=== PATIENT | male | born 1945 | race Caucasian/White ===

== ENCOUNTER 2017-11-23 11:11 | Outpatient (CLI) | payer MEDICARE ==
[2017-11-23 13:45] LABS: Mean Corpuscular HGB CONC 33.7 g/dL (32.0-36.0); Mean Corpuscular Hemoglobin 30.1 pg (27.0-31.0); Mean Corpuscular Volume 89.5 fL (78.0-98.0); Mean Platelet Volume 9.6 fL (7.4-10.4); Platelet Count 133 thou/uL (130-400); Red Blood Cell (RBC) Count 3.99 mill/uL (4.70-6.10); White Blood Cell (WBC) Count 5.8 thou/uL (4.8-10.8)
[2017-11-23 13:47] LABS: INR-International Normal Ratio 1.4; PTT 31.5 SEC (22.9-36.1); Prothrombin Time 17.4 SEC (12.0-14.7)
[2017-11-23 13:55] LABS: Bilirubin Negative (Negative); Blood, Urine Negative (Negative); Clarity CLEAR (Clear); Glucose, Urine (Dipstick) Negative (Negative); Leukocyte Negative (Negative); Nitrite Negative (Negative); Protein, Urine (Dipstick) Negative (Neg-Trace); pH, Urine 6.5 (5.0-9.0)
[2017-11-23 13:56] LABS: Bacteria/HPF None Seen HPF (None Seen); Hyaline Casts/LPF 0-3 HYALINE CAST LPF (0-3 Hyaline); Pathc Cast-AUWi Flag 0.14 (0-2.49); RBC/HPF 0-3 HPF (0-3); Squamous Epithelial None Seen HPF (0-3); WBC/HPF 0-3 HPF (0-3)
[2017-11-23 13:59] LABS: Anion Gap 16 mmol/L (10-20); BUN (Urea Nitrogen) 61 mg/dL (8.4-25.7); Calc. Creatinine Clearance 0 mL/min (70-130); Calcium 9.1 mg/dL (7.8-10.44); Carbon Dioxide 23 mmol/L (23-31); Chloride 105 mmol/L (98-107); Estimated GFR-MDRD 28; Glucose 103 mg/dL (83-110); Potassium 3.6 mmol/L (3.5-5.1); Sodium 140 mmol/L (136-145)
== END 2017-11-23 11:12 | disposition home or self-care (01) ==
LOC: LABBT 11:11
PROVIDERS: ATTEND Urology
DX: Z01.818 Encounter for other preprocedural examination (principal); N40.1 Benign prostatic hyperplasia with lower urinary tract symptoms
CPT/HCPCS: 80048; 81001; 85027; 85610; 85730; 87086; 93005; 93010

== ENCOUNTER 2017-12-02 06:56 | Observation (INO) | payer MEDICARE ==
[2017-11-23 11:48] VITALS: BMI 32.1
[2017-12-02] MEDS ORDERED: Levofloxacin 500 mg/D5W 100 ml Premix Bag ONE (08:07)
[2017-12-02 09:02] LABS: INR-International Normal Ratio 1.1; PTT 29.3 SEC (22.9-36.1); Prothrombin Time 14.2 SEC (12.0-14.7)
[2017-12-02] MEDS ORDERED: Midazolam HCl 2 mg/2 ml Vial ONE (09:30)
[2017-12-02] MEDS ORDERED: Fentanyl 100 MCG/2 ML VIAL ONE (09:30)
[2017-12-02] MEDS ORDERED: Bupivacaine 0.75% W/DEXTROSE 8.25% 2 ML AMP ONE (09:30)
[2017-12-02] MEDS ORDERED: B & O ONE (09:40)
[2017-12-02] MEDS ORDERED: Oxybutynin 5 MG TAB PO PRN (11:42)
[2017-12-02] MEDS ORDERED: Hyoscyamine Sulfate SL 0.125 mg Tablet SL PRN (11:42)
[2017-12-02] MEDS ORDERED: Ondansetron HCl/PF 4 MG/2 ML Vial IVP PRN ×2 (11:42→11:54)
[2017-12-02] MEDS ORDERED: Acetaminophen 500 MG TAB PO PRN (11:42)
[2017-12-02] MEDS ORDERED: Bisacodyl 10 MG SUPP PR PRN (11:42)
[2017-12-02] MEDS ORDERED: hydrALAZINE 20 MG/ML VIAL SLOW IVP PRN (11:42)
[2017-12-02] MEDS ORDERED: Mag-Al 1200 mg/1200 mg/30 ML UDCUP PO PRN (11:42)
[2017-12-02] MEDS ORDERED: Morphine 4 MG/ML VIAL SLOW IVP PRN (11:42)
[2017-12-02] MEDS ORDERED: diphenhydrAMINE 25 MG CAP PO PRN (11:42)
[2017-12-02] MEDS ORDERED: traMADol HCl 50 MG TAB PO PRN (11:46)
[2017-12-02] MEDS ORDERED: HumaLOG 300 UNITS/3 ML VIAL SC PRN (11:47)
[2017-12-02] MEDS ORDERED: Dextrose 5% in Water 1,000 ML IV PRN (11:47)
[2017-12-02] MEDS ORDERED: Dextrose 50% Abboject 50 ML SYRINGE SLOW IVP PRN (11:47)
[2017-12-02] MEDS ORDERED: Promethazine HCl 25 MG/ML VIAL IM PRN (11:54)
[2017-12-02] MEDS ORDERED: Promethazine HCl 25 MG/ML VIAL SLOW IVP PRN (11:54)
[2017-12-02 13:33] LABS: Anion Gap 15 mmol/L (10-20); BUN (Urea Nitrogen) 50 mg/dL (8.4-25.7); Calc. Creatinine Clearance 46 mL/min (70-130); Calcium 9.4 mg/dL (7.8-10.44); Carbon Dioxide 27 mmol/L (23-31); Chloride 105 mmol/L (98-107); Estimated GFR-MDRD 31; Glucose 95 mg/dL (83-110); Potassium 3.5 mmol/L (3.5-5.1); Sodium 143 mmol/L (136-145)
--- NOTE | 2017-12-02 13:54 | OP ---
DATE OF PROCEDURE: 12/02/2017 SERVICE: Urology SURGEON: Rosendo Howe M.D. PREOPERATIVE DIAGNOSES: Benign prostatic hypertrophy with retention. POSTOPERATIVE DIAGNOSES: Benign prostatic hypertrophy with retention. PROCEDURE PERFORMED: Transurethral vaporization of the prostate. INDICATIONS FOR PROCEDURE: Mr. Galdamez is a 72-year-old white male with multiple comorbidities who p resented with benign prostatic hypertrophy and urinary retention. He has actually improved with his comorbidities and is more stable now and has received both cardiac and pulmonary clearance for his pereyra rgery. After discussion of risks and benefits, he has agreed to proceed forward with transurethral v aporization of the prostate. DESCRIPTION OF PROCEDURE: After identification of his armband and verification of consent, the patie nt was brought back to the operating room. He underwent a spinal anesthesia with some sedative. He was placed in dorsal lithotomy position and prepped and draped in sterile fashion. After appropriate timeout, a lubricated 24 Macanese resectoscope sheath with visual obturator was passed through the nilson tus. The meatus did have to be dilated up to 24 Macanese in order to allow the passage of the scope. Once the scope was in, it passed easily all the way to the prostate which was hypertrophic as it had previously been on cystoscopy. The bladder was unremarkable and both ureters were identified close t o the bladder neck, but far enough away to perform the surgery. The visual obturator was then switch ed out for the bipolar button and vaporization was performed from the bladder neck to the verumontanu m circumferentially with most of the prostate tissue being on the lateral lobes. There was a small m edian bar which was relaxed using 5 and 7 incisions, taking care not to injure the ureteral orifices. The intervening tissue between the relaxing 2 SHAISTA incision was vaporized with the button. Meticulo us hemostasis was then performed. After completion, the prostate was wide open. There was no specim en to be collected. There was no bleeding and any small bleeders were further cauterized until nothi ng to be identified even with the bladder emptied. The ureters were identified in orthotopic locatio n unharmed. Satisfied, the bladder was filled and then the resectoscope removed. A 22-Macanese three- way Mackey catheter was then placed into the bladder and the bladder irrigated clear. 30 mL of steril e water was placed into the balloon. The patient had a CBI initiated and his catheter attached to a StatLock. A B&O suppository was placed in his rectum. He was then awakened and taken to PACU for re covery in stable condition. COMPLICATIONS: None. ESTIMATED BLOOD LOSS: Minimal. RETAINED TUBES AND DRAINS: A 22-Macanese 3-way Mackey catheter. SPECIMENS: None. DISPOSITION: The patient will be kept in the hospital overnight on CBI and then he will be discharge d in the morning with or without a catheter assuming he passes a voiding trial.
[2017-12-02] MEDS ORDERED: ePHEDrine/0.9% NaCl/PF SYRINGE 50 mg/10 ml ONE (14:02)
[2017-12-02] MEDS: Mometasone/Formoterol 120 PUFF INHALER INH SCH (19:21)
[2017-12-02] MEDS ORDERED: Loratadine 10 MG TAB PO SCH (21:00)
[2017-12-02] MEDS: Docusate 100 MG CAP PO SCH (21:32)
[2017-12-02] MEDS: Bumetanide 1 MG TAB PO SCH (21:33)
[2017-12-03] MEDS ORDERED: Levothyroxine Sodium 125 MCG TAB PO SCH (06:00)
[2017-12-03 06:16] LABS: Anion Gap 12 mmol/L (10-20); BUN (Urea Nitrogen) 49 mg/dL (8.4-25.7); Calc. Creatinine Clearance 50 mL/min (70-130); Carbon Dioxide 28 mmol/L (23-31); Chloride 104 mmol/L (98-107); Estimated GFR-MDRD 34; Glucose 140 mg/dL (83-110); Potassium 3.3 mmol/L (3.5-5.1); Sodium 141 mmol/L (136-145)
[2017-12-03] MEDS: Mometasone/Formoterol 120 PUFF INHALER INH SCH (06:48)
[2017-12-03 07:20] LABS: Band 20 % (5-11); Eosinophils 2 % (0-10); Hemoglobin 11.4 g/dL (14.0-18.0); Lymphocytes 12 % (21-51); MDiff Complete? YES; Mean Corpuscular HGB CONC 32.8 g/dL (32.0-36.0); Mean Corpuscular Hemoglobin 29.7 pg (27.0-31.0); Mean Corpuscular Volume 90.5 fL (78.0-98.0); Mean Platelet Volume 9.4 fL (7.4-10.4); Monocytes 15 % (0-10); Neutrophil 50 % (42-75); PLT Morphology Comment Appears Decreased; Platelet Count 120 thou/uL (130-400); RBC Distribution Width 14.8 % (11.5-14.5); RBC Morphology Normal; Red Blood Cell (RBC) Count 3.83 mill/uL (4.70-6.10); White Blood Cell (WBC) Count 6.6 thou/uL (4.8-10.8)
[2017-12-03 07:47] VITALS: BP 119/66; TEMP 98
[2017-12-03] MEDS ORDERED: Potassium Chloride 20 MEQ TAB PO SCH (08:00)
[2017-12-03] MEDS: Docusate 100 MG CAP PO SCH (08:09)
[2017-12-03] MEDS ORDERED: Insulin Glargine 20 UNITS in Pre-Filled Syringe 1 EACH SC SCH (09:00)
[2017-12-03] MEDS ORDERED: Amlodipine 5 MG TAB PO SCH (09:00)
[2017-12-03] MEDS ORDERED: Polyethylene Glycol 3350 17 GM Packet PO SCH (09:00)
[2017-12-03] MEDS ORDERED: AcetaZOLAMIDE 250 MG TAB PO SCH (09:00)
[2017-12-03] MEDS ORDERED: Colchicine 0.6 MG TAB PO SCH (09:00)
[2017-12-03] MEDS ORDERED: Non-Formulary Item 1 EACH (Insulin Glargine,Hum.Rec.Anlog [Lantus Solostar] 20 UNIT) SQ SCH (09:00)
[2017-12-03] MEDS ORDERED: Ubidecarenone 50 MG CAP PO SCH ×2 (09:00)
--- NOTE | 2017-12-03 09:01 | DIS ---
Coverage fo DR Howe DATE OF ADMITTIN12/02/2017 DATE OF DISCHARGE: 12/03/2017 PROCEDURE: Cystoscopy, transurethral vaporization of the prostate. CONDITION: Stable. DISPOSITION: To home with assist at home. DISCHARGE MEDICATIONS: Colace, oxybutynin, tramadol provided by Dr. Howe. DISPOSITION: To home to self-care. The patient to be discharged with indwelling Mackey catheter to leg bag, CBI port will be plugged. followup appointment as previously scheduled by Dr. Howe. BRIEF HISTORY: Mr. Galdamez is a 72-year-old male followed by Dr. Howe, he has a history of urinary retention on CICs. He underwent transurethral vaporization of prostate, which was uneventful. The patient was signed out to me by Dr. Howe as he is out of the office today. His CBI was held this morning with amado clear urine. Overnight, there was a tiny small clot that was evacuated manually with no subsequent clots. I did irrigate and flush his catheter with no subsequent clots. His urine is clear enough to be discharged. followup appointment as scheduled. CONDITION: Stable. MTDD
[2017-12-03] MEDS: Bumetanide 1 MG TAB PO SCH (10:50)
== END 2017-12-03 11:37 | disposition home or self-care (01) ==
LOC: SDC 06:56 → SURG A 13:59
PROVIDERS: ADMIT Urology; ATTEND Urology
PROC: 0V507ZZ Destruction of Prostate, Via Natural or Artificial Opening (ICD-10-PCS; principal; 2017-12-02)
DX: N40.1 Benign prostatic hyperplasia with lower urinary tract symptoms (principal); R33.8 Other retention of urine; E03.9 Hypothyroidism, unspecified; D64.9 Anemia, unspecified; I11.0 Hypertensive heart disease with heart failure; I50.9 Heart failure, unspecified; E78.5 Hyperlipidemia, unspecified; J44.9 Chronic obstructive pulmonary disease, unspecified; K21.9 Gastro-esophageal reflux disease without esophagitis; I48.91 Unspecified atrial fibrillation; D69.6 Thrombocytopenia, unspecified; Z79.01 Long term (current) use of anticoagulants; Z79.899 Other long term (current) drug therapy
CPT/HCPCS: 52648; 80048 ×2; 82962 ×2; 85025; 85610; 85730; 94640 ×2; 96365; G0378; 36415; 36416; J1956; J2250; J3010; J3490

== ENCOUNTER 2018-01-17 11:02 | Outpatient (CLI) | payer MEDICARE | END 2018-01-17 11:03 | disposition home or self-care (01) | LOC: BICULT 11:02 | PROVIDERS: ATTEND Urology | DX: N18.3 Chronic kidney disease, stage 3 (moderate) (principal) | CPT/HCPCS: 76770 ==

== ENCOUNTER 2018-08-20 13:18 | Inpatient (IN) | payer MEDICARE ==
--- NOTE | 2018-08-20 13:45 | RAD ---
EXAM: Portable chest PROVIDED CLINICAL HISTORY: Cough COMPARISON: 06/21/2016 FINDINGS: Cardiac silhouette remains enlarged. Right subclavian cardiac pacing device redemonstrated. No focal consolidation, pleural fluid or pneumothorax evident. IMPRESSION: No evidence for an acute cardiopulmonary process.
[2018-08-20 13:59] LABS: Mean Corpuscular HGB CONC 30.1 g/dL (32.0-36.0); Mean Corpuscular Hemoglobin 26.8 pg (27.0-31.0); Mean Corpuscular Volume 89.2 fL (78.0-98.0); Mean Platelet Volume 10.6 fL (7.4-10.4); Platelet Count 124 thou/uL (130-400); RBC Distribution Width 17.4 % (11.5-14.5); Red Blood Cell (RBC) Count 3.74 mill/uL (4.70-6.10); White Blood Cell (WBC) Count 7.3 thou/uL (4.8-10.8)
[2018-08-20] MEDS ORDERED: methylPREDNISolone Sod Succ/PF 125 MG/2 ML VIAL ONE (14:12)
[2018-08-20 14:15] LABS: ALT (SGPT) 17 U/L (8-55); AST (SGOT) 20 U/L (5-34); Albumin 4.3 g/dL (3.4-4.8); Alkaline Phosphatase 129 U/L (40-150); Anion Gap 16 mmol/L (10-20); BUN (Urea Nitrogen) 53 mg/dL (8.4-25.7); Bilirubin, Total 1.3 mg/dL (0.2-1.2); Calc. Creatinine Clearance 0 mL/min (70-130); Calcium 8.8 mg/dL (7.8-10.44); Carbon Dioxide 26 mmol/L (23-31); Chloride 103 mmol/L (98-107); Estimated GFR-MDRD 27; Globulin 2.5 g/dL (2.4-3.5); Glucose 105 mg/dL (83-110); Potassium 3.7 mmol/L (3.5-5.1); Protein, Total 6.8 g/dL (5.8-8.1); Sodium 141 mmol/L (136-145)
[2018-08-20 14:21] LABS: Anisocytosis SLIGHT = 6-15 cells (100X) (0-5/hpf); Band 3 % (5-11); Hypochromia SLIGHT = 6-15 cells (100X) (0-5/hpf); Lymphocytes 6 % (21-51); MDiff Complete? YES; Monocytes 8 % (0-10); Neutrophil 82 % (42-75); Platelet Morphology Comment Appears Decreased
[2018-08-20 14:22] LABS: INR-International Normal Ratio 2.4; PTT 38.4 SEC (22.9-36.1); Prothrombin Time 26.3 SEC (12.0-14.7)
[2018-08-20] MEDS ORDERED: Azithromycin 500 MG VIAL ONE (14:25)
[2018-08-20 14:33] LABS: Troponin I 0.049 ng/mL (< 0.028)
[2018-08-20] MEDS ORDERED: Aspirin Chewable 81 MG TAB ONE (15:15)
[2018-08-20] MEDS ORDERED: Ondansetron PF 4 MG/2 ML Vial IVP PRN (15:20)
[2018-08-20] MEDS ORDERED: Zolpidem Tartrate 5 MG TAB PO PRN (15:20)
[2018-08-20] MEDS ORDERED: Aspirin 325 MG TAB ONE (15:20)
[2018-08-20] MEDS ORDERED: guaiFENesin/DM ER PO PRN (15:20)
[2018-08-20] MEDS ORDERED: HYDROcodone/Acetaminophen 5/325 mg Tablet PO PRN (15:20)
[2018-08-20] MEDS ORDERED: Oxybutynin 5 MG TAB PO PRN (15:28)
[2018-08-20] MEDS ORDERED: Dextrose 5% in Water 1,000 ML IV PRN (15:29)
[2018-08-20] MEDS ORDERED: HumaLOG 300 UNITS/3 ML VIAL SC PRN (15:29)
[2018-08-20] MEDS ORDERED: Dextrose 50% Abboject 50 ML SYRINGE SLOW IVP PRN (15:29)
--- NOTE | 2018-08-20 15:34 | PDOC.EVN ---
Event Note - Event Note Event Note: H&P #[id number]
[2018-08-20 17:37] VITALS: BMI 32.9
[2018-08-20] MEDS: cefTRIAXone\\ROCEPHIN 1 GM in Sodium Chloride 0.9% 100 ML IVPB SCH (18:41)
[2018-08-20] MEDS: methylPREDNISolone Sod Succ 40 MG VIAL IVP SCH ×2 (18:42→23:57)
[2018-08-20 19:29] LABS: Troponin I 0.067 ng/mL (< 0.028)
[2018-08-20] MEDS: Heparin 5,000 UNITS/ML VIAL SC SCH (20:31)
[2018-08-20] MEDS: Bumetanide 1 MG TAB PO SCH (20:31)
--- NOTE | 2018-08-20 22:15 | HP ---
CHIEF COMPLAINT: Shortness of breath. HISTORY OF PRESENT ILLNESS: This is a 73-year-old male with significant history of obesity, apparently smoked a pack a day since the age of 15 until about the age of 69 two packs a day, has a history of significant coronary artery disease, COPD, peripheral vascular disease with 2 stents in the coronaries, 2 stents in the iliacs. The patient presents today with shortness of breath, sees Dr. Anguiano and Dr. Camara for his cardiology and renal issues. The patient presents with shortness of breath and cough, symptoms worsening over the last 3 days, dyspnea on exertion, as well as some mild chest discomfort. The patient states that this sensation of shortness of breath is different than the one that he has had prior, it is not quite like a COPD exacerbation nor is it similar to the type that he had in the past when he had stents done. The patient states that he otherwise denies any other associated symptoms. No alleviating or aggravating factors other than the ones mentioned. The patient is seen and examined in the ER. is at bedside. All questions are answered. ALLERGIES: NO KNOWN DRUG ALLERGIES. PAST MEDICAL HISTORY: 1. Obesity. 2. Hypertension. 3. Coronary artery disease. 4. Diabetes mellitus type 2. 5. Hyperlipidemia. 6. Tachycardia with a pacemaker placement. 7. Edema in lower extremities. 8. Peripheral vascular disease with stents. 9. Coronary artery disease with stents. SOCIAL HISTORY: Social drinker. Currently, nonsmoker. FAMILY HISTORY: Positive for hypertension, diabetes. PHYSICAL EXAMINATION: VITAL SIGNS: Blood pressure was 106/88, respiratory rate of 25, temperature 98, O2 saturation 100% on 4 L nasal cannula, heart rate of 80. GENERAL: The patient is lying in bed, in no acute discomfort. HEENT: Pupils are equal, round, and reactive to light and accommodation. Extraocular muscles intact. Oral cavity, moist and pink. NECK: Supple, mobile, and nontender. Thyroid appreciated. CARDIOVASCULAR: Heart rate, sinus paced rhythm. S1 and S2. No murmurs, rubs, or gallops appreciated. PULMONARY: Coarse breath sounds. Mild expiratory wheezing also noted. Productive cough during examination. ABDOMEN: Just rotund. Positive bowel sounds. Soft, nontender, nondistended. EXTREMITIES: 2+ pitting edema in bilateral lower extremities. Posterior tibialis pulses appreciated, 2+ in upper extremity; 2+ peripheral radial pulses noted. NEUROLOGICAL: Cranial nerves 2 through 12 intact. No loss of motor or sensory function. LABORATORY DATA: Labs reviewed; CBC, BMP, as well as chest x-ray. ASSESSMENT: 1. Shortness of breath. 2. Chronic obstructive pulmonary disease exacerbation. 3. Hyperlipidemia. 4. Hypertension. 5. Coronary artery disease. 6. Peripheral vascular disease. 7. Cardiomyopathy. 8. Diabetes mellitus type 2. 9. Obesity hypoventilation syndrome. PLAN: 1. At this point in time, we will admit the patient to Internal Medicine observation service. Continue home O2 per home O2 protocol. The patient is on continuous home O2. 2. We will give the patient steroids as well as Rocephin and azithromycin. 3. We will obtain iron levels to check for iron-deficiency anemia. 4. Obtain an echocardiogram. 5. I will also consult his exterminator helper and spray cementer per the patient and family request, consult with Dr. Anguiano and Dr. Camara. 6. Continue home Bumex and diuresis according to home regimen for now. 7. We will probably adjust once echo results are available. 8. Repeat lab work in the morning. 9. Blood cultures have been ordered and pending. 10. The patient wishes to remain a full code. 11. Case and plan discussed with the patient and his at length. They understand and agree with this plan. Job ID: [id number]
--- NOTE | 2018-08-21 01:42 | CON ---
DATE OF CONSULTATION: 08/20/2018 INDICATION FOR CONSULTATION: A 73-year-old patient with a history of coronary artery disease, who presented with productive cough and also complained of shoulder and bilateral arm pain. Cardiac enzymes were obtained in the emergency room. Troponin I was found to be indeterminate at 0.049 and he was admitted and we were asked to consult him for possible progression of coronary artery disease. He does have a history of coronary disease, has undergone angioplasty and stent placement in the past, and he also has a pace maker with 100% pacing in the ventricle making it somewhat difficult to determine whether or not the patient has any underlying ischemia on the EKG. At this time, he is comfortable. He says his shoulder and arm pain is actually just a discomfort, is not very bad pain and this has not progressed in nature over the last several days. HISTORY OF PRESENT ILLNESS: This is a very unfortunate 73-year-old gentleman who has been seen by Dr. Anguiano in the past. He originally saw him back in 2016. He underwent cardiac catheterization in 2017. Again, he had actually undergone stent placement in [place] previously to the right coronary artery. He had a catheterization in 2017 after he had complained of some discomfort. He was found to have calcifications in the left main, proximal left anterior descending artery as well as the proximal circumflex. The left main had 20% stenosis. Left anterior descending artery had 20% stenosis, left circumflex had a 50% stenosis. However, the FFR in the left circumflex was 0.9, not indicative to need any type of intervention. His stent in the right coronary artery was a 3.5 x 18 mm stent, which remained patent without evidence of in-stent restenosis. Since that time, he did relatively well. He currently follows up in the office, not routinely, but has been seen in the office on occasion. He underwent cardiac last catheterization that I can see was in 2017. At this time, recently he states he has been complaining of having a cough which became productive. He then presented to the emergency room and had been complaining of discomfort and that is when the enzymes were obtained. PAST MEDICAL HISTORY: Significant for the above noted coronary artery disease, history of pacemaker placement, AV fani ablation, chronic atrial fibrillation. He has had peripheral stent placement in the lower extremity, perhaps even bilateral iliacs, and uncertain exactly what was performed. He has had a tonsillectomy, cataract surgery. He has had total knee replacement on the right. He has had a hemorrhoidectomy. He has had a thyroidectomy. MEDICATIONS: Include; 1. Amlodipine 5 mg a day. 2. Lantus insulin 100 units/mL. He takes it per directions. 3. Acetazolamide 250 mg one tablet q.a.m. 4. Bumetanide 2 mg, he takes 1/2 tablets twice a day. 5. Symbicort aerosol inhaler. 6. Potassium extended release tablets 10 mEq. He takes 20 mEq once a day. 7. Coumadin as directed given INR between 2 and 3. 8. Synthroid 150 mcg daily. 9. He takes Claritin as needed. 10. He takes MiraLAX p.r.n. ALLERGIES: NONE. SOCIAL HISTORY: He smoked in the past, but has stopped sometime back over a couple of years ago. He denies any alcohol use. He lives with his in [place]. FAMILY HISTORY: Positive for coronary artery disease. REVIEW OF SYSTEMS: He mainly complains of cough and a productive sputum and has recently had a tooth abscess for which he has been following up with the dentist and he complained of the shoulder discomfort. He denies any new GI complaints, complaints, or musculoskeletal complaints. Previously he had lower extremity edema, but he has been wearing support stockings or a BRITTNEY hose and these have resolved the problem. There is no significant edema noted today. PHYSICAL EXAMINATION: GENERAL: Reveals a well-developed, well-nourished gentleman, who is in no acute distress. VITAL SIGNS: Blood pressure is 129/61, heart rate is 71 and 100% pacing. He is afebrile. Respiratory rate is 24. HEENT: Shows the head to be normocephalic and atraumatic. Carotid pulses are present. I do not hear any bruits. CHEST: Has late inspiratory and expiratory wheezing throughout. CARDIOVASCULAR: Heart sounds are somewhat distant. I cannot elicit an S1 or S2, but he does have a regular rhythm. He has a very soft systolic murmur at the lower sternal border. ABDOMEN: Shows morbid obesity with positive bowel sounds. No organomegaly or masses noted. No tenderness noted. EXTREMITIES: Show no clubbing, cyanosis, or edema at this time. Pedal pulses are difficult to palpate. NEUROLOGIC: The patient appears to be grossly intact. SKIN: Warm and dry. LABORATORY DATA: Show a troponin I of 0.049. This will be repeated. INR is 2.4. BNP was 345. Hemoglobin is 10 with a WBC of 7.3, BUN was 63 with a creatinine of 2.35, blood sugar was 105, potassium is 3.7, sodium is 141. IMPRESSION: 1. Chronic obstructive pulmonary disease exacerbation with upper respiratory tract infection for which he will continue on his antibiotics. 2. History of coronary artery disease, status post angioplasty, stent placement, the last cardiac catheterization is outlined as above. His pain in his shoulders and arms may be ischemic, but may be noncardiac in nature. He did present with pain previously before he underwent cardiac catheterization in 2017. 3. Chronic obstructive pulmonary disease. This will be dealt with by the primary care service. This appears to be a chronic obstructive pulmonary disease exacerbation at this time. 4. Anemia. This may be anemia of chronic disease. 5. Peripheral vascular disease. He denies any claudication symptoms at this time and seems to be doing quite well. 6. History of chronic kidney disease. His creatinine is 2.35. Should he need to undergo cardiac catheterization, we will need to proceed with hydration prior to that. 7. History of chronic atrial fibrillation. He has undergone AV fani ablation in the past. His rate is under good control and he is 100% pacing. 8. History of pacemaker insertion, uncertain what kind he has, but if he has not had it recently interrogated, we will try to get this on this admission. 9. History of dyslipidemia. I do not see that he is taking any statin medications. We will need to discern why he is not taking these medications and perhaps can resume his statin medications since he does have significant coronary artery disease as well as peripheral vascular disease. He may be a candidate for injectable medications such as PSK9 medications to significantly lower the cholesterol level if he is able to afford these medications. He is on Medicare and [employer], so he may be a reasonable candidate to proceed with this method if he is not able to take the statins and the cholesterol level is still elevated. I do not see a recent cholesterol level. We will try to obtain this prior to the patient being discharged. Perhaps tomorrow morning, we can obtain a cholesterol level. His last LDL level in September 2017 was 210. At this time, we will continue to trend the cardiac enzymes. He will continue on the antibiotics. We will continue to monitor the patient very carefully to see whether or not he meets criteria for undergoing cardiac catheterization and echocardiogram will be obtained to determine if his ejection fraction remains stable. Job ID: [id number]
[2018-08-21 04:57] LABS: Anion Gap 17 mmol/L (10-20); BUN (Urea Nitrogen) 59 mg/dL (8.4-25.7); Calc. Creatinine Clearance 41 mL/min (70-130); Calcium 8.8 mg/dL (7.8-10.44); Carbon Dioxide 24 mmol/L (23-31); Chloride 103 mmol/L (98-107); Estimated GFR-MDRD 27; Glucose 184 mg/dL (83-110); Potassium 3.8 mmol/L (3.5-5.1); Sodium 140 mmol/L (136-145)
[2018-08-21 05:08] LABS: Iron 20 ug/dL (65-175); Iron Binding Capacity, Total 354 mcg/dL (261-462)
[2018-08-21 05:19] LABS: #Basophils 0.1 thou/uL (0.0-0.2); #Lymphocytes 0.3 thou/uL (1.20-3.40); #Monocytes 0.1 thou/uL (0.11-0.59); #Neutrophils 4.3 thou/uL (1.40-6.50); %Basophils 1.5 % (0.0-1.0); %Eosinophils 0.2 % (0.0-10.0); %Lymphocytes 6.8 % (21.0-51.0); %Monocytes 1.1 % (0.0-10.0); %Neutrophils 90.5 % (42.0-75.0); Mean Corpuscular HGB CONC 31.2 g/dL (32.0-36.0); Mean Corpuscular Hemoglobin 27.4 pg (27.0-31.0); Mean Platelet Volume 11.4 fL (7.4-10.4); Platelet Count 109 thou/uL (130-400); RBC Distribution Width 17.2 % (11.5-14.5); Red Blood Cell (RBC) Count 3.62 mill/uL (4.70-6.10); White Blood Cell (WBC) Count 4.7 thou/uL (4.8-10.8)
[2018-08-21] MEDS: Levothyroxine Sodium 125 MCG TAB PO SCH (05:52)
[2018-08-21] MEDS: methylPREDNISolone Sod Succ 40 MG VIAL IVP SCH ×3 (05:52→19:07)
[2018-08-21] MEDS: HumaLOG 300 UNITS/3 ML VIAL SC PRN ×3 (05:59→17:36)
[2018-08-21] MEDS ORDERED: Non-Formulary Item 1 EACH (Insulin Glargine,Hum.Rec.Anlog [Lantus Solostar] 20 UNIT) SQ SCH (09:00)
[2018-08-21] MEDS: Bumetanide 1 MG TAB PO SCH ×2 (09:56→21:26)
[2018-08-21] MEDS: AcetaZOLAMIDE 250 MG TAB PO SCH (09:57)
[2018-08-21] MEDS: Potassium Chloride 20 MEQ TAB PO SCH (09:57)
[2018-08-21] MEDS: Colchicine 0.6 MG TAB PO SCH (09:57)
[2018-08-21] MEDS: Insulin Glargine 20 UNITS in Pre-Filled Syringe SC SCH (09:57)
[2018-08-21] MEDS: Heparin 5,000 UNITS/ML VIAL SC SCH ×2 (09:58→21:26)
--- NOTE | 2018-08-21 10:31 | RAD ---
CHEST 1 VIEW: Date: 08/21/18 INDICATION: Shortness of breath. COMPARISON: Prior exam dated 08/20/18. FINDINGS: There is stable cardiomegaly. Dual lead pacemaker is unchanged. There is mild pulmonary vascular elizabeth estion. No zack pleural effusion or pneumothorax evident. No acute osseous abnormality evident. IMPRESSION: Moderate cardiomegaly with mild pulmonary vascular congestion. POS: BH
--- NOTE | 2018-08-21 11:59 | PDOC.PN ---
- Subjective Encounter Start Date: 08/21/18 Encounter Start Time: 11:56 Patient seen and examined, continues to wheeze, however says he's better than yesterday, all questions answered, no family at bedside. - Objective Vital Signs & Weight: Vital Signs (12 hours) Temp Pulse Resp BP Pulse Ox 08/21/18 07:45 97.8 F 69 16 109/55 L 97 08/21/18 04:17 97.6 F 80 20 97/54 L 92 L Weight Weight 236 lb 3.2 oz I&O: 08/20/18 08/21/18 08/22/18 06:59 06:59 06:59 Intake Total 550 Output Total 275 Balance 275 Result Diagrams: 08/21/18 04:24 08/21/18 04:24 Additional Labs: Accuchecks 08/21/18 08/21/18 08/20/18 11:25 05:52 17:50 POC Glucose 236 H 172 H 141 H Phys Exam - Physical Examination Constitutional: NAD HEENT: PERRLA, moist MMs, sclera anicteric Neck: no nodes, no JVD, supple Respiratory: no rales, wheezing present Cardiovascular: RRR, no significant murmur, no rub Gastrointestinal: soft, non-tender, no distention, positive bowel sounds Musculoskeletal: pulses present, edema present Dx/Plan (1) CAD (coronary artery disease) Code(s): I25.10 - ATHSCL HEART DISEASE OF [place] CORONARY ARTERY W/O ANG PCTRS Status: Chronic Comment: Cath 06/26- 2 V disease.Stenting X4 in the past (2) COPD (chronic obstructive pulmonary disease) Status: Chronic (3) Diabetes type 2, controlled Code(s): E11.9 - TYPE 2 DIABETES MELLITUS WITHOUT COMPLICATIONS Status: Chronic (4) Hypertension Code(s): I10 - ESSENTIAL (PRIMARY) HYPERTENSION Status: Chronic (5) Hypothyroidism Code(s): E03.9 - HYPOTHYROIDISM, UNSPECIFIED Status: Chronic (6) Obesity (BMI 30.0-34.9) Code(s): E66.9 - OBESITY, UNSPECIFIED Status: Chronic - Plan * Change to inpatient for now, continues to have wheezing which is improving, cont steroids * SOB improving * trops trending down, CP resolved, cardio following * renal evaluation pending * labs in AM * case and plan d/w patient at length, he understood and agreed with this plan.
[2018-08-21] MEDS: Azithromycin 500 MG in Sodium Chloride 0.9% 250 ML 250 ML IVPB SCH (15:25)
[2018-08-21] MEDS: cefTRIAXone\\ROCEPHIN 1 GM in Sodium Chloride 0.9% 100 ML IVPB SCH (16:40)
--- NOTE | 2018-08-21 17:47 | PDOC.CTH ---
Cardiology Progress Note - Subjective The pt seen and examined. No overnight events. No cardiac complaints. He cont having COTE with mild movement/talking - Objective Vital Signs Temp Pulse Resp BP Pulse Ox 08/21/18 15:18 97.5 F L 76 20 114/64 93 L 08/21/18 11:21 97.6 F 80 20 124/62 95 08/21/18 07:45 97.8 F 69 16 109/55 L 97 Weight 236 lb 3.2 oz 08/20/18 08/21/18 08/22/18 06:59 06:59 06:59 Intake Total 550 Output Total 275 Balance 275 - Physical Examination General/Neuro: alert & oriented x3 Neck: no JVD present Lungs: other: (wheezing and coarses) Heart: RRR Abdomen: soft Extremities: other: (distended edema;) - Telemetry Telemetry Rhythm: V paced - Labs Result Diagrams: 08/21/18 04:24 08/21/18 04:24 Troponin/CKMB Troponin I 0.030 ng/mL (< 0.028) H 08/21/18 04:24 - Assessment/Plan 1. CAD with hx of stent and normal cath in 2017 - Not on BBlocker due to hx of COPD; not on LYLA/ARB due to hx of CKD; Not on ASA due to Anemia? 2. Chronic Afib with hx of AF fani RFA - On Heparin 5000 units BID; 3. COPD - unchanged 4. LENY on CKD - unchanged 5. DM type 2 - managed by PCP 6. hx of PM placement - 7. Hyperlipidemia - may start PCSK 9 inhibitor? 8. PVD with hx of stent to BLE - 9. Anemia - unchanged 10. Hypothyroidism - MAR reviewed * Dr Anguiano's pt Review of Systems - Review of Systems Constitutional: reports: no symptoms reported EENTM: reports: no symptoms reported Respiratory: reports: shortness of breath, SOB with excertion, SOB at rest Cardiac (ROS): reports: no symptoms reported ABD/GI: reports: no symptoms reported : reports: no symptoms reported Musculoskeletal: reports: no symptoms reported
--- NOTE | 2018-08-21 20:28 | CON ---
DATE OF CONSULTATION: 08/21/2018 CONSULTING PHYSICIAN: Dr. Harden. REASON FOR CONSULTATION: Chronic kidney disease. REASON FOR ADMISSION: Shortness of breath. HISTORY OF PRESENT ILLNESS: This is a 73-year-old male with history of obesity, hypertension, coronary artery disease, type 2 diabetes, hyperlipidemia, came to the hospital with shortness of breath. Nephrology consult for chronic kidney disease. He does follow with Dr. Camara. He is feeling slightly better. No chest pain or palpitation reported to me. No fevers or chills. PAST MEDICAL HISTORY: Positive for hypertension, coronary artery disease, type 2 diabetes, hyperlipidemia, and peripheral vascular disease. HOME MEDICATIONS: 1. Lantus. 2. Diamox. 3. Bumex. 4. Symbicort. 5. Norvasc. 6. Claritin. 7. Colchicine. 8. . 9. MiraLAX. 10. Pantoprazole. 11. Synthroid. ALLERGIES: TO ALLOPURINOL. SOCIAL HISTORY: No smoking, alcohol, or drugs. FAMILY HISTORY: No history of any kidney disease. REVIEW OF SYSTEMS: CONSTITUTIONAL: Negative for weight loss or gain, ability to conduct usual activities. SKIN: Negative for rash, itching. EYES: Negative for double vision, pain. ENT/MOUTH: Negative for nose bleeding, neck stiffness, pain, tenderness. CARDIOVASCULAR: Negative for palpitations, dyspnea on exertion, orthopnea. RESPIRATORY: Negative for shortness of breath, wheezing, cough, hemoptysis, fever or night sweats. GASTROINTESTINAL: Negative for poor appetite, abdominal pain, heartburn, nausea, vomiting, constipation, or diarrhea. GENITOURINARY: Negative for urgency, frequency, dysuria, nocturia. MUSCULOSKELETAL: Negative for pain, swelling. NEUROLOGIC/PSYCHIATRIC: Negative for anxiety, depression. ALLERGY/IMMUNOLOGIC: Negative for skin rash, bleeding tendency. PHYSICAL EXAMINATION: GENERAL: This is a well-built male, in no apparent distress. VITAL SIGNS: Temperature 97.6, pulse 80, respiratory rate 20, and blood pressure 120/62. HEENT: Atraumatic and normocephalic. Oral mucosa moist. NECK: Supple. CV: S1 and S2 heard. Regular rate and rhythm. RESPIRATORY: Clear. GI: Abdomen is soft. MUSCULOSKELETAL: 1+ edema. DERMATOLOGIC: No skin rash. NEUROLOGIC: Alert and awake. PSYCHIATRIC: Normal mood and affect LABORATORY DATA: Hemoglobin is 10.0, platelets 109. Potassium 3.8, BUN is 59, and creatinine is 2.83. ASSESSMENT AND PLAN: 1. Chronic kidney disease, stage 4, stable. 2. Edema. 3. Hypertension. 4. Anemia, chronic. 5. Obesity. Renal function is stable close to his baseline. Avoid nephrotoxins and renally dose the medications and we will follow. Thank you for the consult. Job ID: [id number]
[2018-08-22] MEDS: methylPREDNISolone Sod Succ 40 MG VIAL IVP SCH ×2 (00:22→05:56)
[2018-08-22] MEDS: Levothyroxine Sodium 125 MCG TAB PO SCH (05:56)
[2018-08-22] MEDS: Heparin 5,000 UNITS/ML VIAL SC SCH ×2 (09:00→22:33)
[2018-08-22] MEDS: Colchicine 0.6 MG TAB PO SCH (09:00)
[2018-08-22] MEDS: Insulin Glargine 20 UNITS in Pre-Filled Syringe SC SCH (09:00)
[2018-08-22] MEDS: Potassium Chloride 20 MEQ TAB PO SCH (09:01)
[2018-08-22] MEDS: AcetaZOLAMIDE 250 MG TAB PO SCH (09:01)
[2018-08-22] MEDS: Bumetanide 1 MG TAB PO SCH ×2 (09:01→22:33)
[2018-08-22] MEDS ORDERED: Carvedilol 3.125 MG TAB PO SCH (09:15)
--- NOTE | 2018-08-22 10:38 | PRG ---
DATE OF SERVICE: 08/22/2018 SUBJECTIVE: Patient was seen and examined at bedside and overnight events noted. Patient denies any shortness of breath or chest pain or palpitation. No history of nausea or vomiting or diarrhea or fever or chills or cramps. OBJECTIVE: GENERAL: This is a well-build man, in no apparent distress. VITAL SIGNS: Temperature 97.6, pulse 84, respiratory rate 20. Blood pressure 147/69. HEENT: Atraumatic, normocephalic. Oral mucosa is moist NECK: Supple. CARDIOVASCULAR: S1, S2 heard. Rate and rhythm regular. RESPIRATORY: Clear to auscultation. GASTROINTESTINAL: Abdomen is soft. MUSCULOSKELETAL: No tenderness. No edema. DERMATOLOGIC: No skin rash. NEUROLOGIC: Alert and awake and oriented X3. No focal neurologic deficits. Moving all the extremities. PSYCHIATRIC: Mood and affect normal. LABORATORY DATA: Not done today. ASSESSMENT AND PLAN: 1. Chronic kidney stage 4, stable. 2. Edema, controlled. 3. Hypertension. 4. Anemia. 5. Obesity. We will monitor renal function. Avoid nephrotoxins. We will follow. Job ID: [id number]
[2018-08-22] MEDS: HumaLOG 300 UNITS/3 ML VIAL SC PRN ×2 (11:46→18:11)
--- NOTE | 2018-08-22 11:55 | PRG ---
DATE OF SERVICE: 08/22/2018 SUBJECTIVE: The patient reports that his cough is much improved. His sputum is no longer discolored and he feels like he is better from that perspective. He still feels like he is not quite himself and cannot be more specific in explaining that. He does report some "puffiness" around his eyes. Reports, he usually has much more lower extremity edema, but that has been better since he has been in the hospital, which they believe is partly positional. OBJECTIVE: VITAL SIGNS: Temperature 97.6, pulse 84, respirations 20, O2 saturation 95% on 2 L nasal cannula, and BP 147/69. GENERAL APPEARANCE: Age-appropriate male, in no distress. He is awake and alert. HEENT: Pupils are reactive. He does have some periorbital puffiness. HEART: Regular rate and rhythm without significant murmurs. LUNGS: Slightly diminished, but clear on the right. Slight wheeze on the left. ABDOMEN: Soft, nontender. EXTREMITIES: No edema, but has compression stockings in place. Blood sugar 209. IMPRESSION AND PLAN: 1. Chronic obstructive pulmonary disease exacerbation with bronchitis, improving. We will decrease his steroids to prednisone 20 p.o. daily in an effort to reduce some of his periorbital edema. We will continue with nebulizer treatments and antibiotics for now. 2. Congestive heart failure. The patient's ejection fraction has decreased from previous range of 45-50, down to 25% to 30%. Cardiology following, anticipating heart catheterization on Wednesday once his anticoagulation is improved. Anticipate the possibility of biventricular pacing pending the results, may need AICD as well. 3. Hyperlipidemia. By history, the patient has been on Crestor in the past. According to his , this was ultimately discontinued because he was having number of pains including chest pain and lower extremity pain that is all resolved once his Crestor was discontinued. However, given his current situation, recommendation is for him to be back on it which has been resumed. 4. Chronic kidney disease stage 4, stable. 5. Anemia secondary to chronic kidney disease, stable. 6. Hypertension. Continue current medications. 7. Hypothyroidism. Continue with his usual home regimen. 8. Diabetes mellitus, slightly elevated glucose that should improve with the reduction in steroids. Job ID: [id number]
[2018-08-22] MEDS: Azithromycin 500 MG in Sodium Chloride 0.9% 250 ML 250 ML IVPB SCH (15:34)
[2018-08-22] MEDS: cefTRIAXone\\ROCEPHIN 1 GM in Sodium Chloride 0.9% 100 ML IVPB SCH (17:54)
[2018-08-22] MEDS: Carvedilol 3.125 MG TAB PO SCH (17:55)
[2018-08-22] MEDS: Rosuvastatin 20 MG TAB PO SCH (22:33)
[2018-08-23] MEDS: Levothyroxine Sodium 125 MCG TAB PO SCH (06:08)
[2018-08-23 06:28] LABS: INR-International Normal Ratio 1.9; Prothrombin Time 22.2 SEC (12.0-14.7)
[2018-08-23 06:42] LABS: Anion Gap 17 mmol/L (10-20); BUN (Urea Nitrogen) 95 mg/dL (8.4-25.7); Calc. Creatinine Clearance 36 mL/min (70-130); Calcium 8.5 mg/dL (7.8-10.44); Carbon Dioxide 25 mmol/L (23-31); Cardiac Risk 7.7 (Less than 4.5); Chloride 104 mmol/L (98-107); Cholesterol 200 mg/dl (< 200 Desired); Estimated GFR-MDRD 23; Glucose 188 mg/dL (83-110); HDL Cholesterol 26 mg/dL (>60 Neg Risk); LDL Cholesterol, Calculated 149 mg/dL; Potassium 3.9 mmol/L (3.5-5.1); Sodium 142 mmol/L (136-145); Triglycerides 123 mg/dL (Less than 150)
[2018-08-23] MEDS: Carvedilol 3.125 MG TAB PO SCH ×2 (08:42→16:00)
[2018-08-23] MEDS: predniSONE 20 MG TAB PO SCH (08:43)
[2018-08-23] MEDS: AcetaZOLAMIDE 250 MG TAB PO SCH (08:43)
[2018-08-23] MEDS: Bumetanide 1 MG TAB PO SCH (08:43)
[2018-08-23] MEDS: Insulin Glargine 20 UNITS in Pre-Filled Syringe SC SCH (08:43)
[2018-08-23] MEDS: Colchicine 0.6 MG TAB PO SCH (08:44)
[2018-08-23] MEDS ORDERED: Communication Order-Pharmacy FS SCH (08:45)
[2018-08-23] MEDS: HumaLOG 300 UNITS/3 ML VIAL SC PRN ×2 (08:45→18:01)
[2018-08-23] MEDS: Potassium Chloride 20 MEQ TAB PO SCH (08:51)
[2018-08-23] MEDS: Sodium Chloride 0.9% 1,000 ML IV SCH ×2 (08:54→23:25)
[2018-08-23] MEDS: Heparin 5,000 UNITS/ML VIAL SC SCH (09:06)
--- NOTE | 2018-08-23 14:40 | PDOC.PN ---
- Subjective Encounter Start Date: 08/23/18 Encounter Start Time: 14:39 Subjective: Seen andexamined. Feeling better. -: Cough, SOB andchest discomfort has subsided -: For Cardiac cath tomorrow. - Objective Vital Signs & Weight: Vital Signs (12 hours) Temp Pulse Resp BP BP Pulse Ox 08/23/18 11:50 97.4 F L 71 16 125/67 95 08/23/18 08:31 97.3 F L 83 22 H 138/70 93 L 08/23/18 04:00 97.3 F L 72 20 124/57 L 92 L Weight Weight 235 lb 11.2 oz I&O: 08/22/18 08/23/18 08/24/18 06:59 06:59 06:59 Intake Total 400 1310 Output Total 550 1400 Balance -150 -90 Result Diagrams: 08/21/18 04:24 08/23/18 05:49 Additional Labs: Accuchecks 08/23/18 08/23/18 08/22/18 10:54 05:53 20:20 POC Glucose 120 H 193 H 173 H 08/22/18 16:55 POC Glucose 176 H Phys Exam - Physical Examination Constitutional: NAD HEENT: moist MMs Neck: supple fair air entry bilaterally with some transmitted sound. Cardiovascular: RRR soft systolic murmur noted Gastrointestinal: soft, non-tender, no distention, positive bowel sounds obese Musculoskeletal: no edema, pulses present Neurological: non-focal, moves all 4 limbs Psychiatric: A&O x 3 Dx/Plan (1) COPD with acute exacerbation Code(s): J44.1 - CHRONIC OBSTRUCTIVE PULMONARY DISEASE W (ACUTE) EXACERBATION Status: Acute (2) Cardiomyopathy Code(s): I42.9 - CARDIOMYOPATHY, UNSPECIFIED Status: Acute (3) LENY (acute kidney injury) Code(s): N17.9 - ACUTE KIDNEY FAILURE, UNSPECIFIED Status: Acute (4) Type 2 diabetes mellitus Status: Acute (5) Chronic combined systolic and diastolic congestive heart failure Code(s): I50.42 - CHRONIC COMBINED SYSTOLIC AND DIASTOLIC HRT FAIL Status: Acute (6) Atrial fibrillation Code(s): I48.91 - UNSPECIFIED ATRIAL FIBRILLATION Status: Chronic Qualifiers: Atrial fibrillation type: permanent Qualified Code(s): I48.2 - Chronic atrial fibrillation (7) BPH (benign prostatic hyperplasia) Code(s): N40.0 - BENIGN PROSTATIC HYPERPLASIA WITHOUT LOWER URINRY TRACT SYMP Status: Chronic (8) CAD (coronary artery disease) Code(s): I25.10 - ATHSCL HEART DISEASE OF [place] CORONARY ARTERY W/O ANG PCTRS Status: Chronic Comment: Cath 06/26- 2 V disease.Stenting X4 in the past (9) CKD (chronic kidney disease), stage IV Code(s): N18.4 - CHRONIC KIDNEY DISEASE, STAGE 4 (SEVERE) Status: Chronic (10) Chronic respiratory failure with hypoxia Code(s): J96.11 - CHRONIC RESPIRATORY FAILURE WITH HYPOXIA Status: Chronic (11) Dyslipidemia Code(s): E78.5 - HYPERLIPIDEMIA, UNSPECIFIED Status: Chronic (12) Gout Code(s): M10.9 - GOUT, UNSPECIFIED Status: Chronic - Plan Hold diuretic give LENY -: Agree with IVF in view of plannedcardiac cath. -: Start acetyl cysteine -: Continue other treatments. -: bronchodilators, steroid and oxygen to continue. D/W cardiology * .
[2018-08-23] MEDS ORDERED: Acetylcysteine 20% 200 MG/ML 30 ML VIAL PO SCH (15:00)
--- NOTE | 2018-08-23 15:15 | PRG ---
DATE OF SERVICE: 08/23/2018 SUBJECTIVE: Patient was seen and examined at bedside and overnight events noted. Patient denies any shortness of breath or chest pain or palpitation. No history of nausea or vomiting or diarrhea or fever or chills or cramps. OBJECTIVE: GENERAL: This is a well-built male, in no apparent distress. VITAL SIGNS: Temperature 97.4, PULSE 71, respiratory rate 16. Blood pressure 125/67. HEENT: Atraumatic, normocephalic. Oral mucosa is moist. NECK: Supple. CARDIOVASCULAR: S1, S2 heard. Rate and rhythm regular. RESPIRATORY: Clear to auscultation. GASTROINTESTINAL: Abdomen is soft. MUSCULOSKELETAL: No tenderness. No edema. DERMATOLOGIC: No skin rash. NEUROLOGIC: Alert and awake and oriented x3. No focal neurologic deficits. Moving all the extremities. PSYCHIATRIC: Mood and affect normal. LABORATORY DATA: Potassium 3.9, BUN is 95, creatinine is 2.7. ASSESSMENT AND PLAN: 1. Acute kidney injury on chronic kidney disease, stage 4 with worsening creatinine. Most likely from diuretics. We recommend cautious administration of diuretics. 2. Edema. 3. Cardiorenal syndrome. 4. Hypertension. 5. Anemia. 6. Obesity. Creatinine with slight bump, be cautious with diuretics and monitor closely and adjust the dose. We will follow. Avoid nephrotoxins. Job ID: [id number]
[2018-08-23] MEDS: cefTRIAXone\\ROCEPHIN 1 GM in Sodium Chloride 0.9% 100 ML IVPB SCH (15:59)
[2018-08-23] MEDS: Azithromycin 500 MG in Sodium Chloride 0.9% 250 ML 250 ML IVPB SCH (16:56)
[2018-08-23] MEDS: Rosuvastatin 20 MG TAB PO SCH (21:07)
[2018-08-23] MEDS: Acetylcysteine 20% 200 MG/ML 30 ML VIAL PO SCH (21:08)
[2018-08-24] MEDS: Potassium Chloride 20 MEQ TAB PO SCH (05:46)
[2018-08-24] MEDS: Carvedilol 3.125 MG TAB PO SCH ×2 (05:46→18:19)
[2018-08-24] MEDS: Acetylcysteine 20% 200 MG/ML 30 ML VIAL PO SCH (05:46)
[2018-08-24] MEDS: Levothyroxine Sodium 125 MCG TAB PO SCH (05:46)
[2018-08-24 05:47] LABS: INR-International Normal Ratio 1.7; Prothrombin Time 20.4 SEC (12.0-14.7)
[2018-08-24] MEDS: Colchicine 0.6 MG TAB PO SCH (05:47)
[2018-08-24] MEDS: predniSONE 20 MG TAB PO SCH (05:47)
[2018-08-24] MEDS: AcetaZOLAMIDE 250 MG TAB PO SCH (05:47)
[2018-08-24] MEDS ORDERED: Heparin 10,000 UNITS/1 ML VIAL ONE ×2 (06:27→06:31)
[2018-08-24] MEDS ORDERED: Heparin 0 ML ONE (06:27)
[2018-08-24 06:30] LABS: Band 5 % (5-11); Hemoglobin 9.7 g/dL (14.0-18.0); Lymphocytes 8 % (21-51); MDiff Complete? YES; Mean Corpuscular HGB CONC 30.5 g/dL (32.0-36.0); Mean Corpuscular Hemoglobin 26.4 pg (27.0-31.0); Mean Corpuscular Volume 86.7 fL (78.0-98.0); Mean Platelet Volume 11.7 fL (7.4-10.4); Monocytes 20 % (0-10); Myelocyte 2 % (0-0); Neutrophil 65 % (42-75); Platelet Count 113 thou/uL (130-400); RBC Distribution Width 17.3 % (11.5-14.5); Red Blood Cell (RBC) Count 3.68 mill/uL (4.70-6.10); White Blood Cell (WBC) Count 5.7 thou/uL (4.8-10.8)
[2018-08-24 06:55] LABS: Anion Gap 15 mmol/L (10-20); BUN (Urea Nitrogen) 94 mg/dL (8.4-25.7); Calc. Creatinine Clearance 41 mL/min (70-130); Calcium 8.2 mg/dL (7.8-10.44); Carbon Dioxide 25 mmol/L (23-31); Chloride 106 mmol/L (98-107); Estimated GFR-MDRD 26; Glucose 78 mg/dL (83-110); Potassium 3.7 mmol/L (3.5-5.1); Sodium 142 mmol/L (136-145)
[2018-08-24] MEDS ORDERED: Midazolam HCl 2 mg/2 ml Vial ONE (07:07)
[2018-08-24] MEDS ORDERED: Fentanyl 100 MCG/2 ML VIAL ONE (07:07)
[2018-08-24] MEDS ORDERED: Sodium Chloride 0.9% 200 ML IV PRN (07:40)
[2018-08-24] MEDS ORDERED: Acetaminophen/Codeine 30-300mg Tablet PO PRN ×2 (07:40)
[2018-08-24] MEDS ORDERED: Nitroglycerin 0.4 MG TAB (25 Tab Bottle) SL PRN (07:40)
[2018-08-24] MEDS ORDERED: Sodium Chloride 0.9% 1,000 ML IV SCH ×2 (07:45→16:45)
[2018-08-24] MEDS ORDERED: Iopamidol 370 76% 100 ML VIAL ONE (09:13)
[2018-08-24] MEDS: Insulin Glargine 20 UNITS in Pre-Filled Syringe SC SCH (10:09)
--- NOTE | 2018-08-24 14:04 | PDOC.PN ---
- Subjective Encounter Start Date: 08/24/18 Encounter Start Time: 14:02 Subjective: No new problem -: Had cardiac cath earlier today which showed no occlusive disease. -: Denied Chest pain or SOB. - Objective Vital Signs & Weight: Vital Signs (12 hours) Temp Pulse Resp BP Pulse Ox 08/24/18 03:50 97.4 F L 71 20 120/64 93 L Weight Weight 239 lb 11.2 oz I&O: 08/23/18 08/24/18 08/25/18 06:59 06:59 06:59 Intake Total 1310 2845 Output Total 1400 1675 Balance -90 1170 Result Diagrams: 08/24/18 04:48 08/24/18 04:48 Additional Labs: Accuchecks 08/24/18 08/24/18 08/23/18 10:49 05:45 20:20 POC Glucose 107 81 274 H 08/23/18 17:32 POC Glucose 252 H Phys Exam - Physical Examination Constitutional: NAD obese HEENT: moist MMs Neck: supple Respiratory: no wheezing, no rales fair air entry bilaterally, decreased at bases Cardiovascular: RRR Gastrointestinal: soft, non-tender, no distention, positive bowel sounds obese Musculoskeletal: no edema, pulses present Neurological: non-focal, moves all 4 limbs Psychiatric: A&O x 3 Dx/Plan (1) Cardiomyopathy Code(s): I42.9 - CARDIOMYOPATHY, UNSPECIFIED Status: Acute Comment: EF of 25 -30 on recent echo. Down from EF of 45 on prior Echo. Etiology unclear. cardiac cath only showed mild disease. (2) COPD with acute exacerbation Code(s): J44.1 - CHRONIC OBSTRUCTIVE PULMONARY DISEASE W (ACUTE) EXACERBATION Status: Acute Comment: Improved. (3) LENY (acute kidney injury) Code(s): N17.9 - ACUTE KIDNEY FAILURE, UNSPECIFIED Status: Acute Comment: Improving with creat trending down with IVF. (4) Type 2 diabetes mellitus Status: Acute (5) Chronic combined systolic and diastolic congestive heart failure Code(s): I50.42 - CHRONIC COMBINED SYSTOLIC AND DIASTOLIC HRT FAIL Status: Acute Comment: Off diuretic in preparation for cardiac cath. (6) Atrial fibrillation Code(s): I48.91 - UNSPECIFIED ATRIAL FIBRILLATION Status: Chronic Qualifiers: Atrial fibrillation type: permanent Qualified Code(s): I48.2 - Chronic atrial fibrillation (7) BPH (benign prostatic hyperplasia) Code(s): N40.0 - BENIGN PROSTATIC HYPERPLASIA WITHOUT LOWER URINRY TRACT SYMP Status: Chronic (8) CAD (coronary artery disease) Code(s): I25.10 - ATHSCL HEART DISEASE OF [place] CORONARY ARTERY W/O ANG PCTRS Status: Chronic Comment: Cath 06/26- 2 V disease.Stenting X4 in the past (9) CKD (chronic kidney disease), stage IV Code(s): N18.4 - CHRONIC KIDNEY DISEASE, STAGE 4 (SEVERE) Status: Chronic (10) Chronic respiratory failure with hypoxia Code(s): J96.11 - CHRONIC RESPIRATORY FAILURE WITH HYPOXIA Status: Chronic (11) Dyslipidemia Code(s): E78.5 - HYPERLIPIDEMIA, UNSPECIFIED Status: Chronic (12) Gout Code(s): M10.9 - GOUT, UNSPECIFIED Status: Chronic (13) WILLIAM (obstructive sleep apnea) Code(s): G47.33 - OBSTRUCTIVE SLEEP APNEA (ADULT) (PEDIATRIC) Status: Acute Comment: On nocturnal oxygen. cannot tolerate face mask - Plan Stop IVF after post Cardiac fluid ressuscitation. Comlet mucomyst dose -: Re evaluate volume status with a view to restarting diuretic. -: Defer to cardiology Re Resynchronization. -: Will need lifevest prior to discharge. -: Recheck renal function in the am. * .
[2018-08-24] MEDS: Azithromycin 500 MG in Sodium Chloride 0.9% 250 ML 250 ML IVPB SCH (16:33)
--- NOTE | 2018-08-24 16:40 | PRG ---
DATE OF SERVICE: 08/24/2018 SUBJECTIVE: Patient was seen and examined at bedside and overnight events noted. Patient denies any shortness of breath or chest pain or palpitation. No history of nausea or vomiting or diarrhea or fever or chills or cramps. OBJECTIVE: GENERAL: This is a well-developed male, in no acute distress. VITAL SIGNS: Temperature 97.5, pulse 71, respiratory rate 20, blood pressure 120/64. HEENT: Atraumatic, normocephalic. Oral mucosa is moist NECK: Supple. CARDIOVASCULAR: S1, S2 heard. Rate and rhythm regular. RESPIRATORY: Clear to auscultation. GASTROINTESTINAL: Abdomen is soft. MUSCULOSKELETAL: No tenderness. No edema. DERMATOLOGIC: No skin rash. NEUROLOGIC: Alert and awake and oriented X3. No focal neurologic deficits. Moving all the extremities. PSYCHIATRIC: Mood and affect normal. LABORATORY DATA: Creatinine is 2.4. ASSESSMENT AND PLAN: 1. Acute kidney injury, stable. 2. Chronic kidney stage 4. 3. Edema. 4. Cardiorenal syndrome. 5. Hypertension. 6. Anemia. 7. Obesity. Renal function is stable. We will monitor after contrast exposure. Job ID: [id number]
--- NOTE | 2018-08-24 17:27 | CON ---
DATE OF CONSULTATION: REQUESTING PHYSICIAN: Dr. Blount. REASON FOR REQUEST: Cardiomyopathy. HISTORY OF PRESENT ILLNESS: Mr. Galdamez is a 73-year-old gentleman with a history of coronary artery disease, status post previous stenting; diabetes; atrial fibrillation, status post AV junction ablation by report, dual-chamber pacemaker in situ; chronic kidney disease; chronic atrial fibrillation, who was admitted to the hospital with heart failure exacerbation. He underwent evaluation including cardiac catheterization revealing no requirement for intervention and echocardiogram revealing estimated ejection fraction of 25%, which is reduced from previous ejection fraction of 35%. He states that he has shortness of breath with relatively minimal exertion. PAST MEDICAL HISTORY: Significant for chronic atrial fibrillation; hypertension; diabetes; chronic kidney disease; coronary artery disease, status post stenting; peripheral vascular disease. MEDICATIONS: Include: 1. Insulin. 2. Amlodipine. 3. Acetazolamide. 4. Bumetanide. 5. Symbicort. 6. Potassium. 7. Coumadin. 8. Synthroid. 9. Claritin. FAMILY HISTORY: Reveals no early coronary artery disease or sudden cardiac . SOCIAL HISTORY: Previously smoked. He does not currently smoke. He uses host of medications. REVIEW OF SYSTEMS: Reviewed. He denies nausea, vomiting, diarrhea, fever, chills, change in vision or hearing, bloody stool or urine, all those were negative and included in the HPI. PHYSICAL EXAMINATION: VITAL SIGNS: Pulse is 84, blood pressure is 142/69. HEENT: Pupils are equally round and reactive to light and accommodation. Extraocular movements are intact. Nose; midline septum. No rhinorrhea or epistaxis. Throat; moist. No erythema or exudate. NECK: Supple without lymphadenopathy or goiter. JVD at 12 cm at 0 degrees. HEART: Regular rate and rhythm without murmur, gallop, or rub. LUNGS: Reveal coarse breath sounds bilaterally. ABDOMEN: Soft, nontender, nondistended. Positive bowel sounds. EXTREMITIES: Without cyanosis, clubbing, or edema. NEUROLOGIC: Cranial nerves II through XII grossly intact. Motor strength is 5/5 throughout. DIAGNOSTIC DATA: Electrocardiogram; atrial fibrillation with ventricular pacing. Device evaluation reveals 100% ventricular pacing. Creatinine is 2.7. INR 1.9. TSH is normal. Echocardiogram revealed estimated ejection fraction of 25% to 30%. Cardiac catheterization revealed no current obstruction, patent stents. IMPRESSION: 1. Chronic atrial fibrillation. 2. Cardiomyopathy, possibly pacing induced. 3. Coronary artery disease. 4. Chronic kidney disease. 5. Severe chronic obstructive pulmonary disease. RECOMMENDATIONS: Mr. Galdamez has reduced ejection fraction that is newly diagnosed. I would recommend he be initiated on medical therapy for heart failure. We discussed the option of upgrade to [employer] pacemaker versus defibrillator. At this point, he is interested in the defibrillator. He will need 3 months of medical therapy. Repeat echocardiogram before that. In the meantime, LifeVest is a reasonable option in the interim. I discussed the risks, benefits, and alternatives personally associated with this plan. They understand and agreed to proceed. Job ID: [id number]
[2018-08-24] MEDS: cefTRIAXone\\ROCEPHIN 1 GM in Sodium Chloride 0.9% 100 ML IVPB SCH (18:15)
[2018-08-24] MEDS: Warfarin Sodium 5 MG TAB PO SCH (18:19)
[2018-08-24] MEDS: Rosuvastatin 20 MG TAB PO SCH (20:24)
[2018-08-25] MEDS: Levothyroxine Sodium 125 MCG TAB PO SCH (04:39)
[2018-08-25 05:58] LABS: INR-International Normal Ratio 1.6; Prothrombin Time 18.7 SEC (12.0-14.7)
[2018-08-25 06:04] LABS: Anion Gap 14 mmol/L (10-20); BUN (Urea Nitrogen) 80 mg/dL (8.4-25.7); Calc. Creatinine Clearance 48 mL/min (70-130); Calcium 8.2 mg/dL (7.8-10.44); Carbon Dioxide 25 mmol/L (23-31); Chloride 107 mmol/L (98-107); Estimated GFR-MDRD 31; Glucose 103 mg/dL (83-110); Potassium 3.7 mmol/L (3.5-5.1); Sodium 142 mmol/L (136-145)
[2018-08-25] MEDS ORDERED: Furosemide 20 MG/2 ML VIAL SLOW IVP SCH (08:45)
[2018-08-25] MEDS: Potassium Chloride 20 MEQ TAB PO SCH (09:23)
[2018-08-25] MEDS: Colchicine 0.6 MG TAB PO SCH (09:23)
[2018-08-25] MEDS: AcetaZOLAMIDE 250 MG TAB PO SCH (09:24)
[2018-08-25] MEDS: Carvedilol 3.125 MG TAB PO SCH ×2 (09:25→18:05)
[2018-08-25] MEDS: predniSONE 20 MG TAB PO SCH (09:25)
[2018-08-25] MEDS: Insulin Glargine 20 UNITS in Pre-Filled Syringe SC SCH (09:26)
--- NOTE | 2018-08-25 09:26 | PRG ---
DATE OF SERVICE: 08/25/2018 SUBJECTIVE: Patient was seen and examined at bedside and overnight events noted. Patient denies any shortness of breath or chest pain or palpitation. No history of nausea or vomiting or diarrhea or fever or chills or cramps. OBJECTIVE: GENERAL: This is a well-built man, in no apparent distress. VITAL SIGNS: Temperature 98.2, pulse 69, respiratory rate 16, blood pressure 133/67. HEENT: Atraumatic, normocephalic. Oral mucosa is moist NECK: Supple. CARDIOVASCULAR: S1, S2 heard. Rate and rhythm regular. RESPIRATORY: Clear to auscultation. GASTROINTESTINAL: Abdomen is soft. MUSCULOSKELETAL: No tenderness. No edema. DERMATOLOGIC: No skin rash. NEUROLOGIC: Alert and awake and oriented X3. No focal neurologic deficits. Moving all the extremities. PSYCHIATRIC: Mood and affect normal. LABORATORY DATA: Potassium 3.7, BUN is 80, creatinine is 2.0. ASSESSMENT: 1. Acute kidney injury on chronic kidney disease stage 3, stable. 2. Edema. 3. Cardiorenal syndrome. 4. Hypertension. 5. Anemia. 6. Obesity. 7. Renal function is stable. Follow up with Dr. Camara in 1 to 2 weeks. Job ID: [id number]
[2018-08-25] MEDS: HumaLOG 300 UNITS/3 ML VIAL SC PRN ×2 (13:09→18:04)
[2018-08-25] MEDS: Azithromycin 500 MG in Sodium Chloride 0.9% 250 ML 250 ML IVPB SCH (15:59)
[2018-08-25 17:17] VITALS: BP 141/74; TEMP 97.6
[2018-08-25] MEDS: cefTRIAXone\\ROCEPHIN 1 GM in Sodium Chloride 0.9% 100 ML IVPB SCH (17:44)
[2018-08-25] MEDS: Warfarin Sodium 5 MG TAB PO SCH (18:04)
[2018-08-26] MEDS ORDERED: Furosemide 20 MG TAB PO SCH (09:00)
--- NOTE | 2018-08-26 13:19 | DIS ---
DATE OF ADMISSION: 08/21/2018 DATE OF DISCHARGE: 08/25/2018 DISCHARGE DIAGNOSES: 1. Shortness of breath, likely multifactorial. 2. Chronic obstructive pulmonary disease exacerbation with bronchitis. 3. Congestive heart failure. 4. Cardiomyopathy with an ejection fraction of 25-30 percent, nonischemic. 5. Hyperlipidemia. 6. Chronic kidney disease, stage 4. 7. Anemia of chronic disease. 8. Hypertension. 9. Hypothyroidism. 10. Diabetes mellitus. 11. Hearing deficit. HISTORY OF PRESENT ILLNESS: The patient is a 73-year-old male with a history of prior congestive heart failure symptoms and COPD who presented to the hospital primarily reporting some shortness of breath. His initial chest x-ray was negative for any acute cardiopulmonary findings. It was felt the patient likely had some COPD exacerbation. He was admitted to the hospital, started on steroids and nebulizer treatments. Given a history of coronary disease and the indeterminate troponins, Cardiology was consulted. They noted that the patient also had a history of chronic atrial fibrillation with a prior ablation and was under good control with the pacemaker having 100% paced rhythm. The patient developed some periorbital edema, felt possibly be due to some of the steroids and as his breathing is substantially improved, those were discontinued. The patient did undergo an echocardiogram, which revealed an ejection fraction of 25% to 30% with dilated left atrium and enlarged right atrium and moderately enlarged right ventricle cavity with a bit of a restrictive filling pattern. The patient subsequently underwent a heart catheterization, which only revealed minimal disease and nothing occlusive. Given the worsened cardiomyopathy, the patient was seen in consultation by Dr. Monroe, who recommended a LifeVest on maximal medical therapy, recommended a defibrillator in biventricular pacing. However, the patient's current device would have to be removed and therefore would need to be done in [place] once the patient had the 90 days of maximal medical therapy. The patient did remain on Coumadin during his hospitalization. His renal function remained fairly stable in comparison to his baseline. The patient was waiting for LifeVest for evaluation prior to discharge. However, on evaluation, the patient was thought to have inadequate hearing acuity and a delayed response to auditory cues and therefore felt not to be appropriate for the LifeVest. With that, the patient was otherwise felt to be stable for discharge to home. DISPOSITION: The patient is discharged home. DISCHARGE INSTRUCTIONS: Diet: He is to have a heart healthy, low-sodium renal diet. DISCHARGE MEDICATIONS: He will be on: 1. Coreg 3.125 one p.o. b.i.d. 2. Ditropan 5 mg q.8 hours. 3. Rosuvastatin 20 mg at bedtime. 4. Coumadin 5 mg p.o. daily. 5. Pantoprazole 40 mg daily. 6. Amlodipine 5 mg daily. 7. Potassium 20 mEq daily. 8. Bumex 1.5 mg b.i.d. 9. CoQ10 one p.o. at bedtime. 10. Loratadine 10 mg at bedtime. 11. Symbicort 160/4.5 one inhalation daily. 12. Diamox 1 p.o. daily. 13. Insulin 20 units subcu every morning. 14. MiraLAX 1 packet daily. 15. Colchicine 6 mg daily. 16. Levothyroxine 1 p.o. daily. FOLLOWUP: He is to follow up with Dr. Way in [address] Anguiano in 14 days. PHYSICAL EXAMINATION: VITAL SIGNS: Of note, on the day of discharge, temperature was 97.6, pulse 70, respirations 20, O2 saturation 94% on 2 L nasal cannula, BP was 141/74. GENERAL: The patient was awake and alert. HEART: Regular by my exam. Right upper chest pacemaker in place. LUNGS: Clear, but diminished. ABDOMEN: Benign. EXTREMITIES: Revealed no significant edema. FOLLOWUP: The patient is encouraged to discuss followup options with Dr. Anguiano as they have some concerns about using the [facility] with the thermograph operator. They were encouraged to follow up with the hospital should they have any problems prior to their usual followup time. Time spent in discharge activities, including face to face time with the patient was 38 minutes. Job ID: [id number] [facility]
== END 2018-08-25 18:40 | disposition home or self-care (01) | DRG 191 ==
LOC: ERS 13:18 → 2SW 15:09 → OBSVTOIN 08-21 12:04 → 2NO 08-21 18:07
PROVIDERS: ADMIT Internal Medicine; ATTEND Internal Medicine
PROC: B2111ZZ Fluoroscopy of Multiple Coronary Arteries using Low Osmolar Contrast (ICD-10-PCS; principal; 2018-08-21)
PROC: 4A023N7 Measurement of Cardiac Sampling and Pressure, Left Heart, Percutaneous Approach (ICD-10-PCS; 2018-08-21)
DX: J44.1 Chronic obstructive pulmonary disease with (acute) exacerbation (principal); I50.42 Chronic combined systolic (congestive) and diastolic (congestive) heart failure; I13.0 Hypertensive heart and chronic kidney disease with heart failure and stage 1 through stage 4 chronic kidney disease, or unspecified chronic kidney disease; E66.2 Morbid (severe) obesity with alveolar hypoventilation; N18.4 Chronic kidney disease, stage 4 (severe); N17.9 Acute kidney failure, unspecified; J96.11 Chronic respiratory failure with hypoxia; I42.8 Other cardiomyopathies; I25.10 Atherosclerotic heart disease of native coronary artery without angina pectoris; E11.51 Type 2 diabetes mellitus with diabetic peripheral angiopathy without gangrene; E11.22 Type 2 diabetes mellitus with diabetic chronic kidney disease; I48.2 Chronic atrial fibrillation; D63.1 Anemia in chronic kidney disease; K21.9 Gastro-esophageal reflux disease without esophagitis; E78.00 Pure hypercholesterolemia, unspecified; E03.9 Hypothyroidism, unspecified; N40.0 Benign prostatic hyperplasia without lower urinary tract symptoms; M10.9 Gout, unspecified; J40 Bronchitis, not specified as acute or chronic; Z79.4 Long term (current) use of insulin; Z68.33 Body mass index [BMI] 33.0-33.9, adult; Z95.0 Presence of cardiac pacemaker; Z95.5 Presence of coronary angioplasty implant and graft; Z79.51 Long term (current) use of inhaled steroids; Z79.01 Long term (current) use of anticoagulants; Z79.899 Other long term (current) drug therapy; Z95.820 Peripheral vascular angioplasty status with implants and grafts; Z88.8 Allergy status to other drugs, medicaments and biological substances; Z98.49 Cataract extraction status, unspecified eye; Z96.651 Presence of right artificial knee joint; Z87.891 Personal history of nicotine dependence
CPT/HCPCS: 36415; 36416; 71045; 80048; 80053; 80061; 82728; 83540; 83550; 83605; 83880; 84443; 84484; 85025; 85347; 85610; 85730; 87040; 87804; 93306; 93454; 93798; 94640; 94760; 96365; 96366; 96375; 99152; C1769; J0456; J0696; J1644; J1825; J1940; J2250; J2920; J2930; J3010; J3490; J7050; J7512; J7608; J7620; Q9967

== ENCOUNTER 2019-02-14 09:56 | Outpatient (CLI) | payer MEDICARE ==
--- NOTE | 2019-02-14 11:46 | RAD ---
PA AND LATERAL VIEWS CHEST: Date: 02/14/19 HISTORY: Dyspnea. FINDINGS: Comparison made with exam of 08/21/18. Right-sided AICD remains in place. The heart size is normal. No focal areas of consolidation, pneumot horaces, zack pulmonary edema, or pleural effusions are seen. There are degenerative changes in the spine. IMPRESSION: No acute process. POS: OFF
== END 2019-02-14 09:57 | disposition home or self-care (01) ==
LOC: RAD 09:56
PROVIDERS: ATTEND Internal Medicine Critical Care Medicine
DX: R06.00 Dyspnea, unspecified (principal)
CPT/HCPCS: 71046

== ENCOUNTER 2019-10-23 11:30 | Inpatient (IN) | payer MEDICARE ==
[2019-10-23 13:24] LABS: Mean Corpuscular HGB CONC 29.4 g/dL (32.0-36.0); Mean Corpuscular Hemoglobin 23.4 pg (27.0-31.0); Mean Corpuscular Volume 79.5 fL (78.0-98.0); Mean Platelet Volume 12.6 fL (7.4-10.4); Platelet Count 131 thou/uL (130-400); RBC Distribution Width 19.9 % (11.5-14.5); Red Blood Cell (RBC) Count 2.57 mill/uL (4.70-6.10); White Blood Cell (WBC) Count 4.3 thou/uL (4.8-10.8)
[2019-10-23 13:26] LABS: INR-International Normal Ratio 2.9; Prothrombin Time 30.1 sec (12.0-14.7)
[2019-10-23 13:39] LABS: ALT (SGPT) 26 U/L (8-55); AST (SGOT) 26 U/L (5-34); Alkaline Phosphatase 103 U/L (40-110); Anion Gap 15 mmol/L (10-20); BUN (Urea Nitrogen) 64 mg/dL (8.4-25.7); Bilirubin, Total 0.7 mg/dL (0.2-1.2); Calc. Creatinine Clearance 0 mL/min (70-130); Calcium 7.9 mg/dL (7.8-10.44); Carbon Dioxide 25 mmol/L (23-31); Chloride 105 mmol/L (98-107); Estimated GFR-MDRD 21; Globulin 2.6 g/dL (2.4-3.5); Glucose 120 mg/dL (83-110); Lipase 32 U/L (8-78); Potassium 3.9 mmol/L (3.5-5.1); Protein, Total 6.6 g/dL (5.8-8.1); Sodium 141 mmol/L (136-145)
--- NOTE | 2019-10-23 13:49 | ULT ---
EXAM: Right lower extremity venous Doppler US HISTORY: Right lower extremity edema and pain FINDINGS: Grayscale, color-flow, Doppler evaluation, spectral analysis of the right lower extremity venous stru ctures is performed with 2-D imaging. The right common femoral, superficial femoral, popliteal, posterior tibial, proximal greater saphenous and profunda femoral veins are imaged. There is normal luminal compressibility, flow, and augmentation the visualized deep venous structures of the right lower extremity. IMPRESSION: No evidence of a deep vein thrombosis in the right lower extremity.
[2019-10-23 13:54] LABS: Anisocytosis SLIGHT = 6-15 cells (100X) (0-5/hpf); Band 1 % (5-11); Elliptocytes SLIGHT = 2-5 cells (100X) (0-1/hpf); Eosinophils 3 % (0-10); Hypochromia SLIGHT = 6-15 cells (100X) (0-5/hpf); Lymphocytes 16 % (21-51); MDiff Complete? YES; Microcytosis SLIGHT = 6-15 cells (100X) (0-5/hpf); Monocytes 10 % (0-10); Neutrophil 70 % (42-75); Nucleated RBC 1 % (0); Ovalocytes SLIGHT = 2-5 cells (100X) (0-1/hpf); Platelet Morphology Comment Appears Adequate; Poikilocytosis SLIGHT = 6-15 cells (100X) (0-5/hpf); Polychromasia MODERATE = 3-4 cells (100X) (0-2/hpf)
[2019-10-23 14:01] LABS: CKMB 2.5 ng/mL (0-6.6)
--- NOTE | 2019-10-23 14:23 | CT ---
CT Abdomen Pelvis WO Con: 10/23/2019 1:03 PM HISTORY: Bloating and black tarry stool COMPARISON: None. TECHNIQUE: Multiple contiguous axial images were obtained and a CT of the abdomen and pelvis without IV contrast . Coronal and sagittal reformats were performed. FINDINGS: This examination is limited for the evaluation of solid organs and vascular structures due to the lac k of intravenous contrast. Lower Chest: within normal limits. Abdomen: Liver: within normal limits. Bile Ducts: Normal caliber. Gallbladder: Hyperdensity in the dependent gallbladder likely represents gallstones. Pancreas: within normal limits. Spleen: within normal limits. Adrenals: within normal limits. Kidneys: within normal limits. Pelvis: Reproductive Organs: No pelvic masses. Ureters: within normal limits. Bladder: within normal limits. Bowel: Normal caliber. Scattered diverticula in the colon. Mesenteric Lymph Nodes: No enlarged mesenteric lymph nodes. Peritoneum: No ascites or free air, no fluid collection. Vessels: 2 kissing stents are seen in the distal aorta and common iliac arteries. Retroperitoneum: within normal limits. Abdominal Wall: within normal limits. Bones: Degenerative changes in the spine. IMPRESSION: 1. No evidence of acute intraabdominal or pelvic abnormality. 2. Diverticulosis 3. Cholelithiasis
[2019-10-23] MEDS ORDERED: Pantoprazole 40 MG VIAL ONE (14:48)
[2019-10-23] MEDS ORDERED: Acetaminophen 325 MG TAB PO PRN (15:51)
[2019-10-23 16:55] VITALS: BMI 30.9
[2019-10-23 17:13] LABS: Hemoglobin 5.9 g/dL (14.0-18.0)
[2019-10-23 17:44] LABS: Troponin I 0.022 ng/mL (< 0.028)
[2019-10-23] MEDS ORDERED: Furosemide 40 MG/4 ML VIAL SLOW IVP SCH (18:15)
[2019-10-23] MEDS ORDERED: Dextrose 5% in Water 1,000 ML IV PRN (18:16)
[2019-10-23] MEDS ORDERED: Dextrose 50% Abboject 50 ML SYRINGE SLOW IVP PRN (18:16)
[2019-10-23] MEDS ORDERED: HumaLOG 300 UNITS/3 ML VIAL SC PRN (18:16)
[2019-10-23] MEDS: Mometasone 200 MCG/Formoterol 5 MCG 120 PUFF INHALER INH SCH (18:39)
[2019-10-23] MEDS: Rosuvastatin 20 MG TAB PO SCH (19:55)
[2019-10-23] MEDS: Pantoprazole 40 MG VIAL IVP SCH (20:07)
[2019-10-24] MEDS: Pantoprazole 80 MG in Sodium Chloride 0.9% 100 ML IVPB SCH ×2 (00:49→11:53)
[2019-10-24 04:16] LABS: INR-International Normal Ratio 3.1; Prothrombin Time 31.6 sec (12.0-14.7)
[2019-10-24 04:30] LABS: Anion Gap 16 mmol/L (10-20); BUN (Urea Nitrogen) 59 mg/dL (8.4-25.7); Calc. Creatinine Clearance 32 mL/min (70-130); Calcium 8.2 mg/dL (7.8-10.44); Carbon Dioxide 23 mmol/L (23-31); Chloride 106 mmol/L (98-107); Estimated GFR-MDRD 22; Glucose 100 mg/dL (83-110); Potassium 3.8 mmol/L (3.5-5.1); Sodium 141 mmol/L (136-145)
[2019-10-24 04:34] LABS: Band 1 % (5-11); Hemoglobin 7.6 g/dL (14.0-18.0); Hypochromia SLIGHT = 6-15 cells (100X) (0-5/hpf); Lymphocytes 29 % (21-51); MDiff Complete? YES; Mean Corpuscular HGB CONC 30.4 g/dL (32.0-36.0); Mean Corpuscular Hemoglobin 24.7 pg (27.0-31.0); Mean Platelet Volume 12.5 fL (7.4-10.4); Monocytes 4 % (0-10); Neutrophil 66 % (42-75); Platelet Count 128 thou/uL (130-400); Platelet Morphology Comment Appears Adequate; RBC Distribution Width 19.4 % (11.5-14.5); Red Blood Cell (RBC) Count 3.08 mill/uL (4.70-6.10); White Blood Cell (WBC) Count 4.6 thou/uL (4.8-10.8)
[2019-10-24] MEDS: Levothyroxine 150 MCG TAB PO SCH (04:49)
[2019-10-24] MEDS: Mometasone 200 MCG/Formoterol 5 MCG 120 PUFF INHALER INH SCH ×2 (06:46→18:42)
--- NOTE | 2019-10-24 07:09 | HP ---
CHIEF COMPLAINT: Abdominal bloating, dark stools, and dizziness. HISTORY OF PRESENT ILLNESS: The patient is a very pleasant 74-year-old male with a history of systolic heart failure, COPD, peripheral artery disease, diabetes, CKD stage 4, who presents to the hospital complaining of bloating x2 weeks. The patient states that he has been noticing abdominal fullness after eating small meals. He initially thought that he was constipated, so he took MiraLAX and a whole bunch of other laxatives without any relief. The patient stated that about a week ago, he also had two or three bouts of dark stools. They were very black and after that, they normalized to brown. The patient is on Coumadin. He denies any fevers or chills. The patient also states that for the past few weeks, his lower extremity swelling has gotten worse. He states that normally when he sleeps and wakes up in the morning, the swelling goes down. However, this is continued to be. He denies eating out in restaurants. His is very careful about preparing his meals and also giving him his medications and he has not missed any of his medications. The patient also notes that he has been feeling dizzy, especially when he bends down and sometimes he gets shortness of breath on minimal exertion. The patient comes in today for worsening generalized weakness, dizziness and worsening bloating to the point that he is unable to eat very much. The patient was on Pradaxa in the past, 6 to 7 years ago. He had a GI bleed. He denies any use of any ibuprofen, Advil, or Excedrin recently. PAST MEDICAL HISTORY: History of heart failure, COPD, PAD, diabetes, CKD stage 4. PAST SURGICAL HISTORY: He has had ablation. He has a Bi-V ICD, knee replacement. He also has stents to his lower extremities. SOCIAL HISTORY: He was a former smoker, quit about eight years ago. Denies any alcohol use or any drug use. He is a full code. Lives with his . ALLERGIES: HE IS ALLERGIC TO ALLOPURINOL. HE GETS HIVES. MEDICATIONS: He is on: 1. Colchicine 0.6 mg daily. 2. Pantoprazole 40 mg daily. 3. Coumadin 5 mg daily except for Tuesdays and , he takes 2.5 mg. 4. Synthroid 150 mcg daily. 5. Claritin 10 mg daily. 6. Potassium chloride 20 mEq daily. 7. Symbicort 160-4.5 inhalation twice a day. 8. Acetazolamide 250 mg every morning. 9. Bumetanide 2 mg twice a day. 10. Lantus 20 units in the morning. 11. MiraLAX daily. 12. Carvedilol 6.25 twice a day. 13. Zetia 10 mg daily. 14. Crestor 20 mg daily. FAMILY HISTORY: Mother had stomach cancer, [place]. Father had strokes. PHYSICAL EXAMINATION: VITAL SIGNS: As of the following; temperature 96.3, 71, 16, 97% on room air, 122/62. GENERAL: He is awake, alert, and oriented x3. Does not appear in distress. HEENT: Appears pale. CV: S1, S2 present. No murmurs, rubs, or gallops. LUNGS: Clear to auscultation. No rhonchi or wheezes noted. ABDOMEN: Obese, soft. Bowel sounds are present x2. No pain upon palpation. EXTREMITIES: He has 2+ lower extremity pitting edema, right greater than left. NEUROVASCULAR: No focal deficits noted. SKIN: No cuts, lesions or bruises noted. LABORATORY RESULTS: WBCs of 4.3, hemoglobin of 6.0, hematocrit of 20.4, platelets of 131. His repeat H and H were 5.9. Coagulation, INR of 2.9. Chemistry; sodium 141, potassium of 3.9, BUN of 64, creatinine of 2.99. Troponin is 0.035. BNP is 248. TSH is normal. He did have lower extremity venous Dopplers and abdomen CT pelvis. Lower extremity venous Dopplers was negative for any kind of DVT. He did have a CT of abdomen and pelvis, which did not indicate any bowel obstruction. However, it did indicate that he had some diverticulosis and cholelithiasis. He also has two stents in the distal aorta and common iliac arteries. ASSESSMENT AND PLAN: The patient is a very pleasant 74-year-old male, who presents to the hospital with complaints of generalized weakness and dark stools. 1. Acute on chronic systolic heart failure. His last EF that was done last year indicated an EF of 25% to 30%. However, given the fact that currently his blood pressures are marginal and also he is anemic, we will hold off on diuretics, we will give him 2 units of blood and will give him Lasix in between. That could be causing his abdominal bloating and his worsening lower extremity edema. However, the patient's abdominal bloating could also be secondary to some sort of GI problems. He has had some dark stools, which could be the cause of possible some upper GI bleed since he is on Coumadin. 2. Melena. We will check a stool for occult. His H and H dropped significantly from baseline of 10 to 11 to 6. Repeat one was 5.5. He is on Coumadin. I will hold off on the Coumadin. I will not give him any FFP since he is currently not unstable. I will check an INR in the morning. We will keep him n.p.o. after midnight for possible EGD in the morning. GI has been consulted. We will also put him on a PPI. 3. Abdominal bloating. This could be a combination of possible cardiac related systolic heart failure versus gastroparesis versus possible peptic ulcer disease. Again, he is on PPI. We will consult GI. We will get an echo. We will give him Lasix in between. We will also consult Cardiology given his extensive cardiac issues and also may try Reglan for increased peristalsis. 4. Deep venous thrombosis prophylaxis. We will put patient on SCDs for now. 5. He has some peripheral vascular disease. We will continue with aspirin for now. This has been discussed with the patient and the patient's , who is at the bedside. 6. Chronic kidney disease stage 4, his creatinine is at baseline. Job ID: [id number]
[2019-10-24] MEDS ORDERED: Furosemide 40 MG/4 ML VIAL SLOW IVP SCH (10:15)
[2019-10-24] MEDS: Ezetimibe 10 MG TAB PO SCH (10:33)
[2019-10-24] MEDS: Loratadine 10 MG TAB PO SCH (10:33)
[2019-10-24] MEDS: Colchicine 0.6 MG TAB PO SCH (10:33)
[2019-10-24] MEDS: Aspirin 81 mg Enteric Coated Tablet PO SCH (10:33)
[2019-10-24] MEDS: Pantoprazole 40 MG VIAL IVP SCH (10:36)
--- NOTE | 2019-10-24 14:31 | PDOC.HOSPP ---
- Subjective Encounter Date: 10/24/19 Encounter Time: 10:00 Subjective: pt up in bed no complains - Objective Vital Signs & Weight: Vital Signs (12 hours) Temp Pulse Pulse Pulse Resp BP BP 10/24/19 12:00 98.4 F 71 17 10/24/19 09:10 69 87 126/64 125/59 L 10/24/19 06:46 74 20 10/24/19 03:40 97.4 F L 74 20 BP Pulse Ox Pulse Ox 10/24/19 12:00 124/58 L 96 10/24/19 09:10 93 L 10/24/19 06:46 94 L 10/24/19 03:40 109/55 L 98 Weight Weight 222 lb 3.2 oz Most Recent Monitor Data Heart Rate from ECG 69 I&O: 10/23/19 10/24/19 10/25/19 06:59 06:59 06:59 Intake Total 300 Output Total 500 Balance -200 Result Diagrams: 10/24/19 03:41 10/24/19 03:41 Hospitalist ROS - Review of Systems Respiratory: denies: cough, dry, shortness of breath, hemoptysis, SOB with excertion, pleuritic pain, sputum, wheezing, other Cardiovascular: denies: chest pain, palpitations, orthopnea, paroxysmal noc. dyspnea, edema, light headedness, other Gastrointestinal: denies: nausea, vomiting, abdominal pain, diarrhea, constipation, melena, hematochezia, other - Medication Medications: Active Medications Generic Name Dose Route Start Last Admin Trade Name Freq PRN Reason Stop Dose Admin Aspirin 81 mg 10/24/19 09:00 10/24/19 10:33 Ecotrin PO 81 mg DAILY GEO Administration Colchicine 0.6 mg 10/24/19 09:00 10/24/19 10:33 Colchicine PO 0.6 mg DAILY GEO Administration Ezetimibe 10 mg 10/24/19 09:00 10/24/19 10:33 Zetia PO 10 mg DAILY GEO Administration Pantoprazole Sodium 80 mg/ 100 mls @ 10 mls/hr 10/23/19 15:00 10/24/19 11:53 Sodium Chloride IVPB 100 mls INF GEO Administration Levothyroxine Sodium 150 mcg 10/24/19 06:00 10/24/19 04:49 Synthroid PO 150 mcg 0600 GEO Administration Loratadine 10 mg 10/24/19 09:00 10/24/19 10:33 Claritin PO 10 mg DAILY GEO Administration Mometasone Furoate/Formoterol Fumar 2 puff 10/23/19 18:30 10/24/19 06:46 Dulera 200 Mcg/5 Mcg Inhaler INH 2 puff BID-RT GEO Administration Rosuvastatin Calcium 20 mg 10/23/19 21:00 10/23/19 19:55 Crestor PO 20 mg HS GEO Administration - Exam Heart: negative: RRR, no murmur, no gallops, no rubs, normal peripheral pulses, irregular, diminshed peripheral pulses, murmur present, II/IV, III/IV Respiratory: negative: CTAB, no wheezes, no rales, no ronchi, normal chest expansion, no tachypnea, normal percussion, rales, rhonchi, tachypneic, wheezes Gastrointestinal: negative: soft, non-tender, non-distended, normal bowel sounds , no palpable masses, no hepatomegaly, no splenomegaly, no bruit, no guarding, no rigidity, tender to palpation, distended, diminished bowl sounds, voluntary guarding Extremities: 2+ LE edema. negative: no cyanosis, no clubbing, no edema, 1+ LE edema, clubbing Hosp A/P (1) Melena Code(s): K92.1 - MELENA Status: Acute (2) Chronic combined systolic and diastolic congestive heart failure Code(s): I50.42 - CHRONIC COMBINED SYSTOLIC AND DIASTOLIC HRT FAIL Status: Acute (3) Type 2 diabetes mellitus Status: Acute (4) Obesity (BMI 30.0-34.9) Code(s): E66.9 - OBESITY, UNSPECIFIED Status: Chronic - Plan pt states he feels well. He had 3 bm which were not dark. will give him one more dose of lasix. echo pending. gi and cards consult pending. pt overall feels much better. His inr is still 3.0 will not reverse him as of yet. will wait for gi recommendation. will hold comadin for now.
--- NOTE | 2019-10-24 19:23 | CON ---
DATE OF CONSULTATION: 10/24/2019 CHIEF COMPLAINT: Anemia and black stools. HISTORY OF PRESENT ILLNESS: Mr. Galdamez is a 74-year-old man, who reports two weeks ago that he started having small hard black stools that went on for about a week. He tried changing his diet around, but the black stools persisted. He only had around one bowel movement per day. He felt like he became progressively more constipated and he took some hdrk-hia-hegbbbj stool softeners without help. He gradually became more distended and felt full with any oral intake and ultimately for that reason, he came onto the emergency room for further evaluation. He had a CT scan performed in the ER, which showed some diverticulosis without diverticulitis and was otherwise unremarkable. Cholelithiasis was noted. He has had no red blood in the stools. For the last week, his stools have been brown. Of the last two days, he took some laxatives in the emergency room and he passed multiple brown soft stools without any problems. During his workup, he was found to have significant anemia. His hemoglobin was 6 on presentation. He received 2 units transfusion and his hemoglobin improved to 7.6. He is on anticoagulation with warfarin at home and he is also on aspirin. PAST MEDICAL HISTORY: Diabetes mellitus, hyperlipidemia, congestive heart failure, COPD, peripheral vascular disease, chronic kidney disease stage 4. PAST SURGICAL HISTORY: He has a biventricular pacemaker defibrillator. He has had a knee replacement. He has had peripheral vascular stents placed, has had cardiac ablation. He reports his last colonoscopy was maybe 10 years ago with polyps removed. He thinks that might have been done in [place], but he is not sure. He has had hemorrhoidectomy and thyroidectomy and multiple knee replacement. FAMILY HISTORY: Negative for GI malignancy. SOCIAL HISTORY: He quit smoking years ago. No alcohol or drugs. ALLERGIES: ALLOPURINOL. MEDICATIONS: Prior to admission include: 1. . 2. Symbicort. 3. Aspirin 81 mg daily. 4. CoQ10. 5. Rosuvastatin. 6. Insulin. 7. Carvedilol. 8. Loratadine. 9. Levothyroxine. 10. Warfarin. 11. Pantoprazole 40 mg daily. 12. Colchicine. 13. Bumex. 14. Acetazolamide. REVIEW OF SYSTEMS: Negative x10 systems reviewed except as stated in the history of present illness. PHYSICAL EXAMINATION: VITAL SIGNS: Temperature 98.4, pulse 71, blood pressure 124/58. GENERAL: He is in no acute distress. Alert and oriented x3. HEENT: Eyes have no scleral icterus. Oropharynx is clear without lesions. No cervical or supraclavicular lymphadenopathy. LUNGS: Clear to auscultation bilaterally. HEART: Regular rate and rhythm without murmur. ABDOMEN: Soft, nontender, and nondistended. Bowel sounds are present. EXTREMITIES: 1+ pitting lower extremity edema. Cranial nerves are grossly intact. LABORATORY DATA: White blood cell count 4.6, hemoglobin is 7.6 up from 6.0 after 2 units transfusion, platelets 128. MCV 81. INR 3.1. Creatinine 2.87, BUN 59, bilirubin 0.7, AST 26, ALT 26, alkaline phosphatase 103, albumin 4.0. IMPRESSION: 1. Anemia. Low normal MCV. He has been on chronic anticoagulation with warfarin and aspirin and did have some black stools last week and could have chronic gastrointestinal blood loss. He also has chronic kidney disease stage 4, which may be contributing to his anemia. He has no overt bleeding in the last week. However, he has had some constipation and abdominal bloating and discomfort. 2. Change in bowel habits. 3. History of colon polyps. 4. Thrombocytopenia. He does not have known history of chronic liver disease. His liver tests indicate normal liver function with normal albumin. His INR is elevated secondary to warfarin. There are no nodularity noted by imaging. RECOMMENDATIONS: 1. Start clear liquid diet. 2. Plan for EGD and colonoscopy to further evaluate his early satiety and anemia and history of colon polyps. His INR was 3.1 today. I will plan to start a bowel prep for tomorrow with endoscopy on to allow time for his warfarin to reverse. Job ID: [id number]
[2019-10-24] MEDS: Rosuvastatin 20 MG TAB PO SCH (20:30)
--- NOTE | 2019-10-25 00:50 | CON ---
DATE OF CONSULTATION: HISTORY OF PRESENT ILLNESS: Mr. Marty Galdamez is a 74-year-old white male, who I initially evaluated in the hospital in June 2015. He had previously received most of his health care in [place]. He is was discharged home from [facility] in [place] the day of admission here at [facility]. He had COPD exacerbation requiring BiPAP and also apparently had an episode of upper GI bleeding requiring blood transfusion and underwent endoscopy. He had generalized anasarca as well as renal insufficiency. He was discharged in [place], became increasingly short of breath. He had significant scrotal edema and decided to come to [facility] for further evaluation. He was diuresed and his creatinine went up to 4.2. He also had a dual-chamber pacemaker that was placed in [place] as well as undergoing AV fani ablation in the past due to apgkxjmty-[id number]-dgveyci atrial fibrillation. In October 2015, he was seen in the office. He had stopped smoking and was using inhalers regularly with less shortness of breath. He would use oxygen at night. He was only taking Synthroid 25 alternating with 50 and his TSH was 100 and he did not return for followup. I did not see him again until August 2016 when he came to the office for evaluation prior to possible total knee replacement. He had had a coronary stent placed in the right coronary artery-Cypher 3.5 x 18 mm in [place]. He underwent Lexiscan Cardiolite testing, which revealed a fixed defect in the proximal distal inferior wall and apex, but no evidence of ischemia. There was moderate global left ventricular hypokinesis with ejection fraction of 35%. It was felt that he would need to undergo cardiac catheterization prior to total knee replacement that he would need to be admitted the day before. After he underwent Lexiscan Cardiolite testing, he began to have very sharp pain in his chest at times that would keep him up all night. These episodes would last seconds and were not exertionally related. He then came to the hospital and was admitted. He underwent cardiac catheterization. Left ventriculogram was not performed due to his renal insufficiency. There was a 30% left main, 30% proximal LAD, 50% distal circumflex. There was a 50% lesion proximal to the right coronary artery Cypher stent that did not have any significant stenosis. He underwent left total knee replacement in August 2016 without incident. He was again admitted in August 2018 with increased cough and shortness of breath. It was felt that he had COPD exacerbation. Also, it was noted that his ejection fraction had fallen from 45%-50% to 25%-30%. This was felt to be due to chronic right ventricular pacing. He was diuresed and with his fall in the ejection fraction, had placement of a LifeVest. He then underwent biventricular ICD placement in January 2019. Since that time, his ejection fraction improved to 30% to 35%. He was last seen in the office on September 11 via telemedicine. He denied any chest discomfort or shortness of breath. He continues to be maintained on Coumadin for his chronic atrial fibrillation. He now presents complaining of dark stools, very black and he complained of abdominal bloating. He was found to have a hemoglobin of 6.0 and he was admitted for further evaluation. Hemoglobin further fell to 5.9. He was transfused up to a hemoglobin of 7.6. PAST MEDICAL HISTORY: Severe COPD, chronic atrial fibrillation, AV node ablation and placement of a dual-chamber pacemaker, later upgraded to a biventricular ICD , history of GI bleed while on Pradaxa 4 or 5 years ago, hypothyroidism, chronic kidney disease, hypertension, hyperlipidemia, obesity, peripheral vascular disease. PAST MEDICAL HISTORY: Thyroidectomy, stent placement in the right coronary artery, pacemaker placement and then later upgraded to a biventricular ICD, AV node ablation for fqidxkarq-vd-eumepas atrial fibrillation rates, peripheral artery stent placed, tonsillectomy, cataract surgery, right total knee replacement, hemorrhoidectomy, TURP. MEDICATIONS: 1. Diamox q.a.m. 2. Aspirin 81 daily. 3. Symbicort two puffs b.i.d. 4. Bumex 1 mg b.i.d. 5. Carvedilol 6.25 mg t.i.d. 6. Colchicine 0.6 daily. 7. Zetia 10 mg daily. 8. Rosuvastatin 20 mg daily. 9. Lantus. 10. Synthroid 150 mcg daily. 11. Loratadine daily. 12. Pantoprazole 40 mg q.p.m. 13. MiraLAX daily. 14. KCl 20 mEq q.a.m. 15. CoQ10 daily. 16. Warfarin 5 mg as directed. ALLERGIES: ALLOPURINOL. SOCIAL HISTORY: He smoked 2-3 packs per day. In early 2015, he cut back to one half pack per day and then stop smoking in July 2015. He does not drink alcohol. Lives in [place]. FAMILY HISTORY: Positive for coronary artery disease. REVIEW OF SYSTEMS: A 10-point review of systems unremarkable. PHYSICAL EXAMINATION: VITAL SIGNS: Blood pressure 109/58, pulse 78. HEENT: PERRL. NECK: Supple. CHEST: Reveals crackles at the bases. CARDIOVASCULAR: S1 and S2 normal without any S3, S4, or murmurs. ABDOMEN: Obese, normal bowel sounds. No tenderness. EXTREMITIES: Reveal trace pretibial edema. NEUROLOGIC: Grossly intact. SKIN: Warm and dry. LABORATORY DATA: ICD was interrogated and he does have some fast ventricular rates in the 150s and 160s lasting for 1 to 2 seconds. There is ventricular pacing 95.0% of the time. OptiVol has been gradually increasing since the 3rd week in September. IMAGIN. Echocardiogram revealed ejection fraction of 30% to 35% with defibrillator wire seen in the right ventricle, moderate left atrial enlargement, moderate mitral regurgitation, aortic valvular sclerosis, and rfzr-ma-pgiusoda tricuspid regurgitation. 2. EKG reveals biventricular pacing. LABORATORY DATA: Today hemoglobin 7.6, hematocrit 25.0, white count 4600, platelets 128,000. INR 3.1. Sodium 141, potassium 3.8, chloride 106, carbon dioxide 23, BUN 59, creatinine 2.87. Troponin I 0.035. TSH is normal. BNP 248.4. IMPRESSION: 1. Gastrointestinal bleed. He also apparently had a bleed on Pradaxa 4 or 5 years ago. 2. Chronic atrial fibrillation. 3. History of atrioventricular node ablation. 4. Status post pacemaker placement, upgraded to biventricular implantable cardioverter-defibrillator due to chronic right ventricular pacing. 5. Coronary artery disease with history of stent placed in the right coronary artery with a Cypher 3.5 x 18 mm stent placed in [place]. This continues to show good results. 6. Mild coronary artery disease, on catheterization in 2019. 7. Chronic systolic heart failure with ejection fraction of 30% to 35%. 8. Former smoker. 9. Severe chronic obstructive pulmonary disease. 10. Hypothyroidism under good control. 11. Chronic kidney disease. 12. Hypercholesterolemia. 13. Hypertension. PLAN: The patient will undergo endoscopy. His Coumadin will be held. His cardiac medicines will be gradually resumed. I will follow the patient with you. Job ID: [id number] MTDD
[2019-10-25] MEDS: Pantoprazole 80 MG in Sodium Chloride 0.9% 100 ML IVPB SCH ×3 (01:03→20:53)
[2019-10-25 04:34] LABS: INR-International Normal Ratio 3.1; PTT 41.2 sec (22.9-36.1); Prothrombin Time 31.6 sec (12.0-14.7)
[2019-10-25 04:49] LABS: Anion Gap 14 mmol/L (10-20); BUN (Urea Nitrogen) 51 mg/dL (8.4-25.7); Calc. Creatinine Clearance 33 mL/min (70-130); Calcium 7.7 mg/dL (7.8-10.44); Carbon Dioxide 24 mmol/L (23-31); Chloride 107 mmol/L (98-107); Estimated GFR-MDRD 23; Glucose 128 mg/dL (83-110); Potassium 3.2 mmol/L (3.5-5.1); Sodium 142 mmol/L (136-145)
[2019-10-25 05:26] LABS: Band 3 % (5-11); Eosinophils 2 % (0-10); Hemoglobin 6.8 g/dL (14.0-18.0); Lymphocytes 12 % (21-51); MDiff Complete? YES; Mean Corpuscular HGB CONC 30.6 g/dL (32.0-36.0); Mean Corpuscular Hemoglobin 24.8 pg (27.0-31.0); Mean Platelet Volume 8.1 fL (7.4-10.4); Metamyelocyte 1 % (0-0); Monocytes 13 % (0-10); Myelocyte 1 % (0-0); Neutrophil 66 % (42-75); Platelet Count 103 thou/uL (130-400); Platelet Morphology Comment Appears Decreased; RBC Distribution Width 19.9 % (11.5-14.5); Red Blood Cell (RBC) Count 2.75 mill/uL (4.70-6.10); White Blood Cell (WBC) Count 3.9 thou/uL (4.8-10.8)
[2019-10-25] MEDS: Levothyroxine 150 MCG TAB PO SCH (05:55)
[2019-10-25] MEDS: Mometasone 200 MCG/Formoterol 5 MCG 120 PUFF INHALER INH SCH ×2 (06:42→19:23)
[2019-10-25] MEDS: Aspirin 81 mg Enteric Coated Tablet PO SCH (08:16)
[2019-10-25] MEDS: Loratadine 10 MG TAB PO SCH (08:16)
[2019-10-25] MEDS: Ezetimibe 10 MG TAB PO SCH (08:16)
[2019-10-25] MEDS: AcetaZOLAMIDE 250 MG TAB PO SCH (08:16)
[2019-10-25] MEDS: Potassium Chloride 10 MEQ TAB PO SCH (08:16)
[2019-10-25] MEDS: Colchicine 0.6 MG TAB PO SCH (08:16)
[2019-10-25] MEDS ORDERED: AcetaZOLAMIDE 250 MG TAB PO SCH (09:00)
[2019-10-25] MEDS ORDERED: Phytonadione 10 MG/ML AMP PO SCH (09:30)
--- NOTE | 2019-10-25 11:33 | RAD ---
EXAM: 3 views of the right ankle HISTORY: Ankle pain COMPARISON: None FINDINGS: 3 views of the right ankle shows no evidence of acute fracture or dislocation. Moderate dif fuse soft tissue swelling is seen. No degenerative changes are present. IMPRESSION: No evidence of acute osseous abnormality.
--- NOTE | 2019-10-25 12:47 | PRG ---
DATE OF SERVICE: 10/25/2019 SUBJECTIVE: The patient feels weak, but without any other complaint. He denies any abdominal pain, nausea, or vomiting. His stool is loose, likely from laxative. He does complain of having ankle pain. PHYSICAL EXAMINATION: VITAL SIGNS: Temperature is 98.4, blood pressure is 116/58, pulse of 71. GENERAL: He is alert, conversant. No distress. HEENT: Anicteric sclerae. Oropharynx is clear. CV: Normal S1, S2. Regular rate and rhythm. CHEST: Breath sounds. ABDOMEN: Protuberant, but soft. Nontender. No mass or organomegaly. He has active bowel sounds. EXTREMITIES: No edema. LABORATORY DATA: WBCs 3.9, hemoglobin 6.8 (he is receiving 2nd unit of blood presently), platelet count of 103. INR of 3.1. Electrolytes within normal range. Potassium 3.2, creatinine 2.76. ASSESSMENT: 1. Dbccj-vh-oxpchci anemia with history of melenic stool prior to admission, but has since resolved. The patient is on warfarin therapy. Reportedly had GI bleed, on Pradaxa many years ago. 2. Chronic heart failure. 3. Coronary artery disease. 4. Chronic kidney disease. PLAN/RECOMMENDATION: 1. Bowel prep later today and we will proceed with upper endoscopy and colonoscopy tomorrow. 2. We will trend blood count and transfusion support. Continue transfusion support to maintain hemoglobin above 7 g/dL. 3. Further recommendations to follow, pending endoscopic findings. Job ID: [id number]
--- NOTE | 2019-10-25 16:39 | PDOC.HOSPP ---
- Subjective Encounter Date: 10/25/19 Encounter Time: 10:15 Subjective: pt up in bed feels well but complains of some pain to his right ankle. - Objective Vital Signs & Weight: Vital Signs (12 hours) Temp Pulse Pulse Resp BP BP Pulse Ox 10/25/19 16:20 98.1 F 74 20 131/66 94 L 10/25/19 13:05 98.0 F 62 18 125/62 97 10/25/19 10:30 98.4 F 71 19 116/58 L 94 L 10/25/19 10:15 97.7 F 74 17 115/48 L 94 L 10/25/19 08:17 94 L 10/25/19 07:35 96.6 F L 80 125/60 94 L 10/25/19 06:46 97 10/25/19 06:42 73 16 97 Weight Weight 227 lb 11.2 oz Most Recent Monitor Data Heart Rate from ECG 69 I&O: 10/24/19 10/25/19 10/26/19 06:59 06:59 06:59 Intake Total 300 1746 350 Output Total 500 900 Balance -200 846 350 Result Diagrams: 10/25/19 04:06 10/25/19 04:06 Hospitalist ROS - Review of Systems Gastrointestinal: denies: nausea, vomiting, abdominal pain, diarrhea, constipation, melena, hematochezia, other Genitourinary: denies: dysuria, frequency, incontinence, hematuria, retention, other Musculoskeletal: denies: neck pain, shoulder pain, arm pain, back pain, hand pain, leg pain, foot pain, other - Medication Medications: Active Medications Generic Name Dose Route Start Last Admin Trade Name Maya PRN Reason Stop Dose Admin Acetazolamide 250 mg 10/25/19 09:00 10/25/19 08:16 Diamox PO 250 mg QAM GEO Administration Aspirin 81 mg 10/24/19 09:00 10/25/19 08:16 Ecotrin PO 81 mg DAILY GEO Administration Colchicine 0.6 mg 10/24/19 09:00 10/25/19 08:16 Colchicine PO 0.6 mg DAILY GEO Administration Ezetimibe 10 mg 10/24/19 09:00 10/25/19 08:16 Zetia PO 10 mg DAILY GEO Administration Pantoprazole Sodium 80 mg/ 100 mls @ 10 mls/hr 10/23/19 15:00 10/25/19 08:34 Sodium Chloride IVPB 100 mls INF GEO Administration Levothyroxine Sodium 150 mcg 10/24/19 06:00 10/25/19 05:55 Synthroid PO 150 mcg 0600 GEO Administration Loratadine 10 mg 10/24/19 09:00 10/25/19 08:16 Claritin PO 10 mg DAILY GEO Administration Mometasone Furoate/Formoterol Fumar 2 puff 10/23/19 18:30 10/25/19 06:42 Dulera 200 Mcg/5 Mcg Inhaler INH 2 puff BID-RT GEO Administration Potassium Chloride 20 meq 10/25/19 09:00 10/25/19 08:16 Klor-Con 10 PO 20 meq DAILY GEO Administration Rosuvastatin Calcium 20 mg 10/23/19 21:00 10/24/19 20:30 Crestor PO 20 mg HS GEO Administration Sodium Chloride 10 ml 10/24/19 21:00 10/25/19 08:17 Flush - Normal Saline IVF 10 ml Q12HR GEO Administration - Exam Neck: negative: supple, symmetric, no JVD, no thyromegaly, no lymphadenopathy, no carotid bruit, JVD Heart: negative: RRR, no murmur, no gallops, no rubs, normal peripheral pulses, irregular, diminshed peripheral pulses, murmur present, II/IV, III/IV Respiratory: negative: CTAB, no wheezes, no rales, no ronchi, normal chest expansion, no tachypnea, normal percussion, rales, rhonchi, tachypneic, wheezes Hosp A/P (1) Melena Code(s): K92.1 - MELENA Status: Acute (2) Chronic combined systolic and diastolic congestive heart failure Code(s): I50.42 - CHRONIC COMBINED SYSTOLIC AND DIASTOLIC HRT FAIL Status: Acute (3) Type 2 diabetes mellitus Status: Acute (4) Obesity (BMI 30.0-34.9) Code(s): E66.9 - OBESITY, UNSPECIFIED Status: Chronic - Plan pt states he feels well. He had 3 bm which were not dark. will give him one more dose of lasix. echo pending. gi and cards consult pending. pt overall feels much better. His inr is still 3.0 will not reverse him as of yet. will wait for gi recommendation. will hold comadin for now. 10/24 pt's inr is still 3.0. will give him one dose of iv vit k. will check inr in am. He will undergo egd/colono in am. will give him one dose of lasix after one unit of blood. will get xray of right ankle.
[2019-10-25] MEDS ORDERED: Potassium Chloride 20 MEQ TAB PO SCH (16:45)
[2019-10-25] MEDS: GoLYTELY 4,000 ml Bottle PO SCH (17:01)
[2019-10-25] MEDS: Rosuvastatin 20 MG TAB PO SCH (20:53)
[2019-10-26 04:52] LABS: INR-International Normal Ratio 2.1; PTT 37.4 sec (22.9-36.1); Prothrombin Time 23.6 sec (12.0-14.7)
[2019-10-26 05:05] LABS: Anion Gap 15 mmol/L (10-20); BUN (Urea Nitrogen) 45 mg/dL (8.4-25.7); Calc. Creatinine Clearance 33 mL/min (70-130); Calcium 7.9 mg/dL (7.8-10.44); Carbon Dioxide 24 mmol/L (23-31); Chloride 105 mmol/L (98-107); Estimated GFR-MDRD 22; Glucose 95 mg/dL (83-110); Potassium 3.2 mmol/L (3.5-5.1); Sodium 141 mmol/L (136-145)
[2019-10-26 05:27] LABS: Band 4 % (5-11); Hemoglobin 8.1 g/dL (14.0-18.0); Hypochromia SLIGHT = 6-15 cells (100X) (0-5/hpf); Lymphocytes 18 % (21-51); MDiff Complete? YES; Mean Corpuscular HGB CONC 31.8 g/dL (32.0-36.0); Mean Corpuscular Hemoglobin 25.8 pg (27.0-31.0); Mean Corpuscular Volume 81.2 fL (78.0-98.0); Mean Platelet Volume 8.4 fL (7.4-10.4); Metamyelocyte 1 % (0-0); Monocytes 3 % (0-10); Neutrophil 74 % (42-75); Platelet Count 114 thou/uL (130-400); Platelet Morphology Comment Appears Decreased; RBC Distribution Width 19.7 % (11.5-14.5); Red Blood Cell (RBC) Count 3.12 mill/uL (4.70-6.10); White Blood Cell (WBC) Count 4.6 thou/uL (4.8-10.8)
[2019-10-26] MEDS ORDERED: Labetalol HCl 100 MG/20 ML VIAL SLOW IVP PRN (06:07)
[2019-10-26] MEDS ORDERED: Potassium Chloride 10 MEQ/100 ML PREMIX BAG IVPB SCH (06:30)
[2019-10-26] MEDS ORDERED: Potassium Chloride 20 MEQ TAB PO SCH (06:30)
[2019-10-26] MEDS ORDERED: Phytonadione 10 MG/ML AMP PO SCH (06:30)
[2019-10-26] MEDS: Mometasone 200 MCG/Formoterol 5 MCG 120 PUFF INHALER INH SCH ×2 (06:50→19:46)
[2019-10-26] MEDS ORDERED: Ketamine 50 MG/ML (10ML VIAL) ONE (07:32)
[2019-10-26] MEDS ORDERED: Midazolam HCl 2 mg/2 ml Vial ONE (07:32)
--- NOTE | 2019-10-26 09:06 | OP ---
DATE OF PROCEDURE: 10/26/2019 PROCEDURES PERFORMED: 1. Esophagogastroduodenoscopy (diagnostic). 2. Colonoscopy (diagnostic). INDICATIONS FOR PROCEDURE: Anemia, melena, and elevated INR. DESCRIPTION OF PROCEDURE: After the risks and benefits of the procedures were explained to the patient including risks of bleeding, infection, perforation, reactions to anesthesia, aspiration, and/or pain, informed consent was obtained. The patient was then taken to the endoscopy suite where deep sedation was administered via propofol and anesthesia support. Once adequate sedation was achieved, the standard gastroscope was introduced into the mouth with intubation of the esophagus, stomach, and the proximal small intestines with the findings listed below. The patient tolerated this portion of the procedure well with no immediate perioperative complications. Upon conclusion of this procedure, all equipment was removed and the bed was rotated 180 degrees in anticipation of the colonoscopy. Once in adequate position, a digital rectal examination was performed followed by introduction of the standard colonoscope, which was advanced to the terminal ileum without difficulty. The quality of the prep was good with adequate visualization of the colonic mucosa and ileal mucosa. The patient tolerated the procedure well with no immediate perioperative complications. Upon conclusion of the procedure, all equipment was removed from the patient and he was transferred to PACU in satisfactory condition. EGD FINDINGS: Esophagus: Normal-appearing mucosa was seen in the proximal, mid, and distal esophagus. There was no evidence of erosions, ulcerations, mass lesions, or active/recent bleeding. Stomach: Normal-appearing mucosa was seen in the gastric cardia, fundus, body, greater curvature, antrum, and incisura. There was some mild friability of the gastric mucosa to the passage of the gastroscope, but otherwise there was no evidence of erosions, ulcerations, mass lesions, or active/recent bleeding. Duodenum: Normal-appearing mucosa was seen in both the duodenal bulb and second portion of the duodenum and into the 3rd portion of the duodenum. There was no evidence of erosions, ulcerations, mass lesions, or active/recent bleeding. IMPRESSION: 1. Mild friability of the gastric mucosa, most likely due to his elevated INR. 2. Otherwise normal upper endoscopy with no evidence of active/recent bleeding. COLONOSCOPY FINDINGS: Digital rectal exam: Small external hemorrhoids were seen on external examination without any evidence of active or recent bleeding. Colon findings: Normal-appearing mucosa was seen within the terminal ileum up to approximately 20 to 25 cm past the ileocecal valve. There was no etiology of his bleeding nor was there any old blood in this region indicative of an upper GI bleed. Normal-appearing mucosa was then seen at the appendiceal orifice and ileocecal valve. Normal-appearing mucosa was then seen in the cecum, ascending colon, transverse colon, and descending colon. A large amount of small and large mouth diverticula were seen in the sigmoid colon. Careful examination was performed, evaluating all these diverticula with no evidence of ulceration, blood clot, or erythema surrounding these diverticula. A 4- to 5-mm polyp was then seen in the rectum that did not display any increased erythema or evidence of active/recent bleeding. This polyp was not intervened upon today due to the increased risk of bleeding with an elevated INR of 2.1. Otherwise, normal-appearing mucosa was seen in the distal rectum. Small nonbleeding internal hemorrhoids were seen on rectal retroflexion. IMPRESSION: 1. Severe sigmoid diverticulosis (could be a potential site of recent gastrointestinal bleeding). 2. 4- to 5-mm rectal polyp, not intervened upon due to elevated INR. 3. Small nonbleeding internal and external hemorrhoids (likely not contributing to his anemia). 4. No etiology for the patient's melena or anemia seen during this examination. RECOMMENDATIONS: 1. We will continue to trend his hemoglobin and hematocrit and transfuse as necessary to maintain the hemoglobin and hematocrit of 7/21. 2. Continue to monitor clinically for signs of active GI bleeding. 3. If the patient does continue to have overt bleeding or decrease in his hemoglobin and hematocrit, would consider a tagged red cell scan for further localization of this bleeding. 4. Would defer to primary team on timing regarding restarting anticoagulation, but could consider within the next 24 to [address] the patient on a clear liquid diet and advance as tolerated. 6. The patient will need a repeat colonoscopy within the next year for removal of the rectal polyp once his INR is more stable and/or the Coumadin can be stopped safely for the procedure. 7. Given the lack of overt bleeding on this admission, I would recommend follow up in the GI clinic within 2 to 3 weeks and consideration for capsule endoscopy at that time. He continues to have anemia. 8. We will consider placing the patient on iron supplementation with careful attention to black stools that can be a side effect of medication. We will sign off at this time. Please call with any additional questions. Job ID: [id number]
[2019-10-26] MEDS: Loratadine 10 MG TAB PO SCH (10:19)
[2019-10-26] MEDS: AcetaZOLAMIDE 250 MG TAB PO SCH (10:19)
[2019-10-26] MEDS: Potassium Chloride 10 MEQ TAB PO SCH (10:19)
[2019-10-26] MEDS: Aspirin 81 mg Enteric Coated Tablet PO SCH (10:19)
[2019-10-26] MEDS: Colchicine 0.6 MG TAB PO SCH (10:20)
[2019-10-26] MEDS: Ezetimibe 10 MG TAB PO SCH (10:20)
[2019-10-26] MEDS: Levothyroxine 150 MCG TAB PO SCH (10:21)
[2019-10-26] MEDS ORDERED: Furosemide 40 MG/4 ML VIAL SLOW IVP SCH (13:00)
[2019-10-26] MEDS: GoLYTELY 4,000 ml Bottle PO SCH (15:21)
[2019-10-26] MEDS ORDERED: PROPOFOL 200 MG/20 ML VIAL ONE (15:42)
[2019-10-26] MEDS: Carvedilol 3.125 MG TAB PO SCH (17:26)
[2019-10-26] MEDS: Bumetanide 1 MG TAB PO SCH (20:16)
[2019-10-26] MEDS: Gabapentin 100 MG CAP PO SCH (20:17)
[2019-10-26] MEDS: Rosuvastatin 20 MG TAB PO SCH (20:17)
[2019-10-27 04:45] LABS: INR-International Normal Ratio 1.4; Prothrombin Time 17.5 sec (12.0-14.7)
[2019-10-27 05:00] LABS: Anion Gap 14 mmol/L (10-20); BUN (Urea Nitrogen) 37 mg/dL (8.4-25.7); Calc. Creatinine Clearance 36 mL/min (70-130); Carbon Dioxide 25 mmol/L (23-31); Chloride 106 mmol/L (98-107); Estimated GFR-MDRD 24; Glucose 117 mg/dL (83-110); Potassium 3.5 mmol/L (3.5-5.1); Sodium 141 mmol/L (136-145)
[2019-10-27 05:27] LABS: Band 3 % (5-11); Hemoglobin 7.9 g/dL (14.0-18.0); Lymphocytes 29 % (21-51); MDiff Complete? YES; Mean Corpuscular HGB CONC 30.2 g/dL (32.0-36.0); Mean Corpuscular Hemoglobin 24.6 pg (27.0-31.0); Mean Corpuscular Volume 81.4 fL (78.0-98.0); Mean Platelet Volume 7.6 fL (7.4-10.4); Monocytes 16 % (0-10); Neutrophil 52 % (42-75); Platelet Count 114 thou/uL (130-400); Platelet Morphology Comment Appears Decreased; RBC Distribution Width 20.1 % (11.5-14.5); Red Blood Cell (RBC) Count 3.22 mill/uL (4.70-6.10); White Blood Cell (WBC) Count 3.9 thou/uL (4.8-10.8)
[2019-10-27] MEDS: Levothyroxine 150 MCG TAB PO SCH (05:40)
[2019-10-27] MEDS: AcetaZOLAMIDE 250 MG TAB PO SCH (08:19)
[2019-10-27] MEDS: Aspirin 81 mg Enteric Coated Tablet PO SCH (08:19)
[2019-10-27] MEDS: Bumetanide 1 MG TAB PO SCH (08:19)
[2019-10-27] MEDS: Gabapentin 100 MG CAP PO SCH (08:20)
[2019-10-27] MEDS: Potassium Chloride 10 MEQ TAB PO SCH (08:20)
[2019-10-27] MEDS: Carvedilol 3.125 MG TAB PO SCH (08:20)
[2019-10-27] MEDS: Colchicine 0.6 MG TAB PO SCH (08:20)
[2019-10-27] MEDS: Ezetimibe 10 MG TAB PO SCH (08:20)
[2019-10-27] MEDS: Loratadine 10 MG TAB PO SCH (08:21)
[2019-10-27] MEDS: Mometasone 200 MCG/Formoterol 5 MCG 120 PUFF INHALER INH SCH (09:30)
[2019-10-27 12:39] VITALS: BP 124/59; TEMP 97.5
--- NOTE | 2019-10-27 12:53 | PDOC.HOSPP ---
- Subjective Encounter Date: 10/26/19 Encounter Time: 10:30 Subjective: pt up in bed no complains - Objective Vital Signs & Weight: Vital Signs (12 hours) Temp Pulse Pulse Pulse Resp BP BP 10/27/19 11:52 97.5 F L 75 20 10/27/19 09:30 99 16 10/27/19 08:57 99 84 128/68 129/63 10/27/19 07:22 97.1 F L 71 14 10/27/19 03:43 98.3 F 70 20 BP Pulse Ox 10/27/19 11:52 124/59 L 94 L 10/27/19 09:30 10/27/19 08:57 10/27/19 07:22 115/74 91 L 10/27/19 03:43 117/58 L 98 Weight Weight 230 lb 4.8 oz Most Recent Monitor Data Heart Rate from ECG 69 I&O: 10/26/19 10/27/19 10/28/19 06:59 06:59 06:59 Intake Total 1430 1385 Output Total 1295 Balance 1430 90 Result Diagrams: 10/27/19 04:25 10/27/19 04:25 Additional Labs: Accuchecks 10/27/19 10/27/19 10/26/19 11:08 05:56 20:45 POC Glucose 115 H 156 H 178 H 10/26/19 16:54 POC Glucose 138 H Hospitalist ROS - Review of Systems Respiratory: denies: cough, dry, shortness of breath, hemoptysis, SOB with excertion, pleuritic pain, sputum, wheezing, other Cardiovascular: denies: chest pain, palpitations, orthopnea, paroxysmal noc. dyspnea, edema, light headedness, other Gastrointestinal: denies: nausea, vomiting, abdominal pain, diarrhea, constipation, melena, hematochezia, other - Medication Medications: Active Medications Generic Name Dose Route Start Last Admin Trade Name Freq PRN Reason Stop Dose Admin Acetazolamide 250 mg 10/25/19 09:00 10/27/19 08:19 Diamox PO 250 mg QAM GEO Administration Aspirin 81 mg 10/24/19 09:00 10/27/19 08:19 Ecotrin PO 81 mg DAILY GEO Administration Bumetanide 1 mg 10/26/19 21:00 10/27/19 08:19 Bumex PO 1 mg BID GEO Administration Colchicine 0.6 mg 10/24/19 09:00 10/27/19 08:20 Colchicine PO 0.6 mg DAILY GEO Administration Ezetimibe 10 mg 10/24/19 09:00 10/27/19 08:20 Zetia PO 10 mg DAILY GEO Administration Gabapentin 100 mg 10/26/19 21:00 10/27/19 08:20 Neurontin PO 100 mg BID GEO Administration Levothyroxine Sodium 150 mcg 10/24/19 06:00 10/27/19 05:40 Synthroid PO 150 mcg 0600 GEO Administration Loratadine 10 mg 10/24/19 09:00 10/27/19 08:21 Claritin PO 10 mg DAILY GEO Administration Mometasone Furoate/Formoterol Fumar 2 puff 10/23/19 18:30 10/27/19 09:30 Dulera 200 Mcg/5 Mcg Inhaler INH 2 puff BID-RT GEO Administration Pantoprazole Sodium 40 mg 10/26/19 21:00 10/26/19 20:17 Protonix PO 40 mg QPM GEO Administration Potassium Chloride 20 meq 10/25/19 09:00 10/27/19 08:20 Klor-Con 10 PO 20 meq DAILY GEO Administration Rosuvastatin Calcium 20 mg 10/23/19 21:00 10/26/19 20:17 Crestor PO 20 mg HS GEO Administration Sodium Chloride 10 ml 10/24/19 21:00 10/27/19 08:24 Flush - Normal Saline IVF 10 ml Q12HR GEO Administration - Exam Heart: negative: RRR, no murmur, no gallops, no rubs, normal peripheral pulses, irregular, diminshed peripheral pulses, murmur present, II/IV, III/IV Respiratory: negative: CTAB, no wheezes, no rales, no ronchi, normal chest expansion, no tachypnea, normal percussion, rales, rhonchi, tachypneic, wheezes Gastrointestinal: negative: soft, non-tender, non-distended, normal bowel sounds , no palpable masses, no hepatomegaly, no splenomegaly, no bruit, no guarding, no rigidity, tender to palpation, distended, diminished bowl sounds, voluntary guarding Extremities: 2+ LE edema Hosp A/P (1) Melena Code(s): K92.1 - MELENA Status: Acute (2) Chronic combined systolic and diastolic congestive heart failure Code(s): I50.42 - CHRONIC COMBINED SYSTOLIC AND DIASTOLIC HRT FAIL Status: Acute (3) Type 2 diabetes mellitus Status: Acute (4) Obesity (BMI 30.0-34.9) Code(s): E66.9 - OBESITY, UNSPECIFIED Status: Chronic - Plan pt states he feels well. He had 3 bm which were not dark. will give him one more dose of lasix. echo pending. gi and cards consult pending. pt overall feels much better. His inr is still 3.0 will not reverse him as of yet. will wait for gi recommendation. will hold comadin for now. 10/24 pt's inr is still 3.0. will give him one dose of iv vit k. will check inr in am. He will undergo egd/colono in am. will give him one dose of lasix after one unit of blood. will get xray of right ankle. 10/25 pt up in bed no complains. pt was given one more dose of vit k. egd/colo no sign of bleeding. will monitor for one more day.
[2019-10-27] MEDS ORDERED: Carvedilol 6.25 MG TAB PO SCH (17:00)
[2019-10-27] MEDS ORDERED: Apixaban 5 MG TAB PO SCH (21:00)
--- NOTE | 2019-10-28 03:22 | DIS ---
DATE OF ADMISSION: 10/23/2019 DATE OF DISCHARGE: 10/27/2019 DISCHARGE DIAGNOSES: As of the followin. Melena. 2. Anemia, most likely secondary to blood loss. 3. Coronary artery disease. 4. Hypertension. 5. Chronic kidney disease, stage IV. HOSPITAL COURSE: The patient is a very pleasant 74-year-old male who initially presented to the hospital with multiple complaints of abdominal bloating, generalized weakness and lower extremity edema. At this time, he was seen by Cardiology and GI. The patient had an echocardiogram which indicated a depressed EF of 30% to 35%. Per Cardiology, his medications were slightly titrated. He was given some IV Lasix. He received about 2 units of PRBC. The patient underwent an EGD colonoscopy on the . There was no overt sign of bleeding that was seen. He did have some mild friability on the gastric mucosa. The patient had a couple days of INRs of 3.1 after holding his for few days. At this time, he received one dose of vitamin K which was a small dose of 2.5 mg. His INR the next day was 2.1. Given the fact that he was going to go for EGD colonoscopy, I gave him another 2.5, which brought his INR down to 1.4 today. I will restart his Coumadin. I have instructed the to check his INR level on Wednesday and also to follow up with his primary care doctor next week. In the EGD and colonoscopy, especially in the colonoscopy, it was mentioned that he had small several sigmoid diverticulosis, which could be the potential sign for his recent GI bleed. However, there was nothing overt seen in the colonoscopy. He also had a rectal polyp, which was not taken out due to his elevated INR. He also had some small nonbleeding internal and external hemorrhoids, which were most likely not contributing to his anemia. Recommendation was to monitor H and H and to transfuse as needed and okay to start the Coumadin in the next 24-48 hours. Recommendations from GI were to repeat a colonoscopy next year for the removal of the rectal polyp once the INR is most stable. Also recommendation was to follow up with the GI Clinic in 2-3 weeks for capsule endoscopy, if he continues to have anemia. I have started the patient on iron supplements and have talked with his and told her that she will have to watch his stools and watch him for signs and if anything changes to bring him back to the ER. She understands. HOME MEDICATIONS: Will be as of the followin. I am going to restart back him on his Coumadin, Coreg 3.125 mg twice daily, iron 325 daily, gabapentin was started since he was having some neuropathic changes or pain 100 mg twice daily. 2. Diamox 1 tab p.o. daily. 3. Bumex 1 b.i.d. 4. Colchicine 0.6 daily. 5. Pantoprazole 40 mg daily. 6. Potassium 20 mEq daily. 7. Levothyroxine 1 p.o. daily. 8. MiraLAX daily. 9. Rosuvastatin 20 mg at bedtime. 10. Lantus 20 units q.a.m. 11. Aspirin 81 mg daily. PHYSICAL EXAMINATION: VITAL SIGNS: Are as of the following; temperature 97.1, 71, 14, 91% on room air, 128/68. GENERAL: The patient is awake, alert, and oriented, is in no pain distress. CV: S1, S2 present. No murmurs, rubs, or gallops. ABDOMEN: Soft and nontender. Bowel sounds are present x2. The patient will be discharged home. He will follow up with his primary. Job ID: [id number]
--- NOTE | 2019-10-28 13:03 | EKG ---
Test Reason : CONSTIPATION Blood Pressure : / mmHG Vent. Rate : 071 BPM Atrial Rate : 075 BPM P-R Int : 000 ms QRS Dur : 204 ms QT Int : 534 ms P-R-T Axes : 000 107 006 degrees QTc Int : 580 ms Ventricular-paced rhythm with occasional Premature ventricular complexes Abnormal ECG Confirmed by HARSH MICHAEL DO ([id number]), non linear editor CHERYLE HOOVER ([id number] on 10/28/2019 1:03:05 PM Referred By: Confirmed By:HARSH MICHAEL DO
== END 2019-10-27 13:38 | disposition home or self-care (01) | DRG 378 ==
LOC: ERS 11:30 → 2NO 16:20
PROVIDERS: ADMIT Internal Medicine; ATTEND Internal Medicine
PROC: 30233N1 Transfusion of Nonautologous Red Blood Cells into Peripheral Vein, Percutaneous Approach (ICD-10-PCS; 2019-10-23)
PROC: 3E0G8GC Introduction of Other Therapeutic Substance into Upper GI, Via Natural or Artificial Opening Endoscopic (ICD-10-PCS; principal; 2019-10-26)
PROC: 0DJD8ZZ Inspection of Lower Intestinal Tract, Via Natural or Artificial Opening Endoscopic (ICD-10-PCS; 2019-10-26)
DX: K92.1 Melena (principal); N18.4 Chronic kidney disease, stage 4 (severe); I13.0 Hypertensive heart and chronic kidney disease with heart failure and stage 1 through stage 4 chronic kidney disease, or unspecified chronic kidney disease; I50.42 Chronic combined systolic (congestive) and diastolic (congestive) heart failure; I48.20 Chronic atrial fibrillation, unspecified; I42.9 Cardiomyopathy, unspecified; I25.10 Atherosclerotic heart disease of native coronary artery without angina pectoris; K64.4 Residual hemorrhoidal skin tags; K64.8 Other hemorrhoids; K57.30 Diverticulosis of large intestine without perforation or abscess without bleeding; K62.1 Rectal polyp; E03.9 Hypothyroidism, unspecified; K21.9 Gastro-esophageal reflux disease without esophagitis; E78.5 Hyperlipidemia, unspecified; D63.1 Anemia in chronic kidney disease; T45.515A Adverse effect of anticoagulants, initial encounter; E78.00 Pure hypercholesterolemia, unspecified; D69.6 Thrombocytopenia, unspecified; D50.0 Iron deficiency anemia secondary to blood loss (chronic); Z96.651 Presence of right artificial knee joint; Z96.652 Presence of left artificial knee joint; E11.22 Type 2 diabetes mellitus with diabetic chronic kidney disease; I27.81 Cor pulmonale (chronic); I73.9 Peripheral vascular disease, unspecified; E66.9 Obesity, unspecified; K59.00 Constipation, unspecified; Z87.891 Personal history of nicotine dependence; Z95.5 Presence of coronary angioplasty implant and graft; Z79.01 Long term (current) use of anticoagulants; Z98.42 Cataract extraction status, left eye; Z98.41 Cataract extraction status, right eye; Z68.32 Body mass index [BMI] 32.0-32.9, adult; Z79.4 Long term (current) use of insulin
CPT/HCPCS: 36415; 36416; 36430; 74176; 80048; 80053; 82274; 82553; 83690; 83735; 83880; 84443; 84484; 85025; 85610; 85730; 86850; 86900; 86901; 93005; 93306; 96365; 96376; C9113; J1940; J2250; J2704; J3430; J3480; J3490; P9016

== ENCOUNTER 2020-10-23 12:55 | Inpatient (IN) | payer MEDICARE ==
[2020-10-23 13:38] LABS: Hemoglobin 6.8 g/dL (14.0-18.0); Mean Corpuscular Hemoglobin 33.1 pg (27.0-31.0); Mean Corpuscular Volume 97.2 fL (78.0-98.0); Mean Platelet Volume 9.8 fL (7.4-10.4); Platelet Count 123 thou/uL (130-400); RBC Distribution Width 15.3 % (11.5-14.5); Red Blood Cell (RBC) Count 2.06 mill/uL (4.70-6.10); White Blood Cell (WBC) Count 5.2 thou/uL (4.8-10.8)
[2020-10-23 13:44] LABS: ALT (SGPT) 18 U/L (8-55); AST (SGOT) 29 U/L (5-34); Albumin 3.8 g/dL (3.4-4.8); Alkaline Phosphatase 101 U/L (40-110); Anion Gap 14 mmol/L (10-20); BUN (Urea Nitrogen) 106 mg/dL (8.4-25.7); Bilirubin, Total 0.7 mg/dL (0.2-1.2); Calc. Creatinine Clearance 0 mL/min (70-130); Calcium 8.1 mg/dL (7.8-10.44); Carbon Dioxide 29 mmol/L (23-31); Chloride 101 mmol/L (98-107); Globulin 2.3 g/dL (2.4-3.5); Glucose 78 mg/dL (83-110); Potassium 3.7 mmol/L (3.5-5.1); Protein, Total 6.1 g/dL (5.8-8.1); Sodium 140 mmol/L (136-145)
[2020-10-23 13:49] LABS: INR-International Normal Ratio 3.5; PTT 35.9 sec (22.9-36.1); Prothrombin Time 35.5 sec (12.0-14.7)
[2020-10-23] MEDS ORDERED: Pantoprazole 40 MG VIAL ONE (14:00)
[2020-10-23 14:05] LABS: Anisocytosis SLIGHT = 6-15 cells (100X) (0-5/hpf); Elliptocytes SLIGHT = 2-5 cells (100X) (0-1/hpf); Lymphocytes 21 % (21-51); MDiff Complete? YES; Monocytes 18 % (0-10); Neutrophil 61 % (42-75); Platelet Morphology Comment Appears Decreased; Polychromasia SLIGHT = 2-3 cells (100X) (0-2/hpf)
[2020-10-23 14:16] LABS: CKMB 1.8 ng/mL (0-6.6)
[2020-10-23] MEDS ORDERED: Ondansetron PF 4 MG/2 ML Vial IVP PRN (16:28)
[2020-10-23 17:37] LABS: SARS-CoV-2 NAA Rapid Test Not Detected (NotDetected)
[2020-10-23 21:22] VITALS: BMI 34.0
[2020-10-23] MEDS: Pantoprazole 40 MG VIAL IVP SCH (21:32)
[2020-10-24] MEDS ORDERED: Dextrose 50% Abboject 50 ML SYRINGE SLOW IVP PRN (04:31)
[2020-10-24] MEDS ORDERED: HumaLOG 300 UNITS/3 ML VIAL SC PRN (04:31)
[2020-10-24] MEDS ORDERED: Dextrose 5% in Water 1,000 ML IV PRN (04:31)
[2020-10-24 06:26] LABS: ALT (SGPT) 17 U/L (8-55); AST (SGOT) 27 U/L (5-34); Albumin 3.5 g/dL (3.4-4.8); Alkaline Phosphatase 90 U/L (40-110); Anion Gap 16 mmol/L (10-20); BUN (Urea Nitrogen) 98 mg/dL (8.4-25.7); Bilirubin, Total 0.7 mg/dL (0.2-1.2); Calc. Creatinine Clearance 37 mL/min (70-130); Calcium 8.1 mg/dL (7.8-10.44); Carbon Dioxide 26 mmol/L (23-31); Chloride 104 mmol/L (98-107); Globulin 2.1 g/dL (2.4-3.5); Glucose 105 mg/dL (83-110); Potassium 3.4 mmol/L (3.5-5.1); Protein, Total 5.6 g/dL (5.8-8.1); Sodium 143 mmol/L (136-145)
[2020-10-24 06:36] LABS: Hemoglobin 6.9 g/dL (14.0-18.0); Mean Corpuscular HGB CONC 32.8 g/dL (32.0-36.0); Mean Corpuscular Hemoglobin 31.9 pg (27.0-31.0); Mean Corpuscular Volume 97.4 fL (78.0-98.0); Mean Platelet Volume 10.2 fL (7.4-10.4); Platelet Count 109 thou/uL (130-400); RBC Distribution Width 15.9 % (11.5-14.5); Red Blood Cell (RBC) Count 2.15 mill/uL (4.70-6.10); White Blood Cell (WBC) Count 4.6 thou/uL (4.8-10.8)
[2020-10-24] MEDS ORDERED: Potassium Chloride 20 MEQ TAB PO SCH (07:30)
[2020-10-24 08:17] LABS: Band 3 % (5-11); Eosinophils 5 % (0-10); Lymphocytes 20 % (21-51); MDiff Complete? YES; Monocytes 17 % (0-10); Neutrophil 55 % (42-75); Platelet Morphology Comment Appears Decreased; Polychromasia MODERATE = 3-4 cells (100X) (0-2/hpf)
[2020-10-24] MEDS ORDERED: Ketamine 50 MG/ML (10ML VIAL) ONE (10:02)
[2020-10-24 10:49] LABS: INR-International Normal Ratio 3.3; Prothrombin Time 33.7 sec (12.0-14.7)
[2020-10-24] MEDS ORDERED: PROPOFOL 200 MG/20 ML VIAL ONE (11:08)
[2020-10-24] MEDS: Carvedilol 6.25 MG TAB PO SCH ×3 (13:11→21:05)
[2020-10-24] MEDS: Bumetanide 1 MG TAB PO SCH ×2 (13:13→21:09)
[2020-10-24] MEDS: Ezetimibe 10 MG TAB PO SCH (13:13)
[2020-10-24] MEDS: Pantoprazole 40 MG VIAL IVP SCH (13:14)
[2020-10-24] MEDS: Febuxostat 40 MG TAB PO SCH (13:14)
[2020-10-24 18:58] LABS: Hemoglobin 8.2 g/dL (14.0-18.0)
[2020-10-24] MEDS: Mometasone 200 MCG/Formoterol 5 MCG 120 PUFF INHALER INH SCH (19:07)
[2020-10-24] MEDS: Rosuvastatin 20 MG TAB PO SCH (21:02)
[2020-10-25 04:53] LABS: Hemoglobin 7.3 g/dL (14.0-18.0); Mean Corpuscular HGB CONC 34.4 g/dL (32.0-36.0); Mean Corpuscular Hemoglobin 32.8 pg (27.0-31.0); Mean Corpuscular Volume 95.4 fL (78.0-98.0); Mean Platelet Volume 9.4 fL (7.4-10.4); Platelet Count 95 thou/uL (130-400); RBC Distribution Width 16.6 % (11.5-14.5); Red Blood Cell (RBC) Count 2.21 mill/uL (4.70-6.10)
[2020-10-25 04:54] LABS: INR-International Normal Ratio 2.8; Prothrombin Time 29.4 sec (12.0-14.7)
[2020-10-25 05:02] LABS: Anion Gap 10 mmol/L (10-20); BUN (Urea Nitrogen) 85 mg/dL (8.4-25.7); Calc. Creatinine Clearance 37 mL/min (70-130); Calcium 7.8 mg/dL (7.8-10.44); Carbon Dioxide 29 mmol/L (23-31); Chloride 103 mmol/L (98-107); Glucose 106 mg/dL (83-110); Potassium 3.4 mmol/L (3.5-5.1); Sodium 139 mmol/L (136-145)
[2020-10-25] MEDS ORDERED: Levothyroxine 150 MCG TAB PO SCH (06:00)
[2020-10-25 06:18] LABS: Band 1 % (5-11); Eosinophils 4 % (0-10); Lymphocytes 23 % (21-51); MDiff Complete? YES; Monocytes 10 % (0-10); Myelocyte 1 % (0-0); Neutrophil 61 % (42-75); Platelet Morphology Comment Appears Decreased
[2020-10-25] MEDS: Mometasone 200 MCG/Formoterol 5 MCG 120 PUFF INHALER INH SCH ×2 (07:09→18:38)
[2020-10-25] MEDS: Bumetanide 1 MG TAB PO SCH ×2 (09:32→21:56)
[2020-10-25] MEDS: Febuxostat 40 MG TAB PO SCH (09:33)
[2020-10-25] MEDS: Ezetimibe 10 MG TAB PO SCH (09:33)
[2020-10-25] MEDS: Carvedilol 6.25 MG TAB PO SCH ×3 (09:33→21:57)
[2020-10-25] MEDS ORDERED: Potassium Chloride 20 MEQ TAB PO SCH (10:45)
[2020-10-25] MEDS: Rosuvastatin 20 MG TAB PO SCH (21:57)
[2020-10-26 04:39] LABS: Hemoglobin 7.2 g/dL (14.0-18.0); Mean Corpuscular Hemoglobin 31.8 pg (27.0-31.0); Mean Corpuscular Volume 96.4 fL (78.0-98.0); Mean Platelet Volume 9.6 fL (7.4-10.4); Platelet Count 96 thou/uL (130-400); RBC Distribution Width 16.4 % (11.5-14.5); Red Blood Cell (RBC) Count 2.27 mill/uL (4.70-6.10); White Blood Cell (WBC) Count 4.2 thou/uL (4.8-10.8)
[2020-10-26 04:51] LABS: INR-International Normal Ratio 1.9; Prothrombin Time 21.7 sec (12.0-14.7)
[2020-10-26 04:54] LABS: Anion Gap 12 mmol/L (10-20); BUN (Urea Nitrogen) 74 mg/dL (8.4-25.7); Calc. Creatinine Clearance 36 mL/min (70-130); Carbon Dioxide 29 mmol/L (23-31); Chloride 103 mmol/L (98-107); Potassium 3.3 mmol/L (3.5-5.1); Sodium 141 mmol/L (136-145)
[2020-10-26 04:55] LABS: Calcium 7.6 mg/dL (7.8-10.44); Glucose 114 mg/dL (83-110)
[2020-10-26] MEDS ORDERED: Levothyroxine 175 MCG TAB PO SCH (06:00)
[2020-10-26 06:21] LABS: Anisocytosis SLIGHT = 6-15 cells (100X) (0-5/hpf); Band 9 % (5-11); Elliptocytes SLIGHT = 2-5 cells (100X) (0-1/hpf); Eosinophils 3 % (0-10); Lymphocytes 26 % (21-51); MDiff Complete? YES; Monocytes 16 % (0-10); Myelocyte 1 % (0-0); Neutrophil 43 % (42-75); Platelet Morphology Comment Appears Decreased
[2020-10-26 07:53] VITALS: BP 107/72; TEMP 97.8
[2020-10-26] MEDS: Mometasone 200 MCG/Formoterol 5 MCG 120 PUFF INHALER INH SCH (08:32)
[2020-10-26] MEDS: Carvedilol 6.25 MG TAB PO SCH (09:46)
[2020-10-26] MEDS: Ezetimibe 10 MG TAB PO SCH (09:46)
[2020-10-26] MEDS: Febuxostat 40 MG TAB PO SCH (09:46)
[2020-10-26] MEDS: Bumetanide 1 MG TAB PO SCH (09:46)
== END 2020-10-26 11:57 | disposition home or self-care (01) | DRG 377 ==
LOC: ERS 12:55 → ERHOLD 15:32 → 2NO 20:55
PROVIDERS: ADMIT Student in an Organized Health Care Education/Training Program; ATTEND Internal Medicine
PROC: 30233N1 Transfusion of Nonautologous Red Blood Cells into Peripheral Vein, Percutaneous Approach (ICD-10-PCS; 2020-10-23)
PROC: 0W3P8ZZ Control Bleeding in Gastrointestinal Tract, Via Natural or Artificial Opening Endoscopic (ICD-10-PCS; principal; 2020-10-24)
DX: K31.811 Angiodysplasia of stomach and duodenum with bleeding (principal); I21.A1 Myocardial infarction type 2; I42.9 Cardiomyopathy, unspecified; D62 Acute posthemorrhagic anemia; I50.42 Chronic combined systolic (congestive) and diastolic (congestive) heart failure; N18.4 Chronic kidney disease, stage 4 (severe); K76.6 Portal hypertension; I48.21 Permanent atrial fibrillation; I13.0 Hypertensive heart and chronic kidney disease with heart failure and stage 1 through stage 4 chronic kidney disease, or unspecified chronic kidney disease; I48.20 Chronic atrial fibrillation, unspecified; M10.9 Gout, unspecified; I25.10 Atherosclerotic heart disease of native coronary artery without angina pectoris; G47.33 Obstructive sleep apnea (adult) (pediatric); N40.0 Benign prostatic hyperplasia without lower urinary tract symptoms; J44.9 Chronic obstructive pulmonary disease, unspecified; E78.5 Hyperlipidemia, unspecified; E66.9 Obesity, unspecified; Z66 Do not resuscitate; E89.0 Postprocedural hypothyroidism; K31.89 Other diseases of stomach and duodenum; D69.6 Thrombocytopenia, unspecified; E78.00 Pure hypercholesterolemia, unspecified; E11.22 Type 2 diabetes mellitus with diabetic chronic kidney disease; Z96.652 Presence of left artificial knee joint; E11.51 Type 2 diabetes mellitus with diabetic peripheral angiopathy without gangrene; Z79.4 Long term (current) use of insulin; Z79.899 Other long term (current) drug therapy; Z79.82 Long term (current) use of aspirin; Z79.01 Long term (current) use of anticoagulants; Z95.810 Presence of automatic (implantable) cardiac defibrillator; Z95.820 Peripheral vascular angioplasty status with implants and grafts; Z88.8 Allergy status to other drugs, medicaments and biological substances; Z87.891 Personal history of nicotine dependence; Z95.5 Presence of coronary angioplasty implant and graft; Z68.34 Body mass index [BMI] 34.0-34.9, adult
CPT/HCPCS: 36415; 36416; 36430; 76705; 80048; 80053; 82274; 82553; 83880; 84439; 84443; 84484; 85025; 85610; 85730; 86850; 86900; 86901; 93005; 93010; 94760; 96374; 99292; C9113; J2704; P9016; U0002; U0005

== ENCOUNTER 2020-11-25 14:15 | Inpatient (IN) | payer MEDICARE ==
[2020-11-25 22:52] VITALS: BMI 32.3
[2020-11-27 11:45] VITALS: TEMP 97.3
[2020-11-27 14:29] VITALS: BP 109/67
== END 2020-11-27 15:28 | disposition home or self-care (01) | DRG 378 ==
LOC: ERS 14:15 → T4-A 16:45 → OBSVTOIN 11-26 18:41
PROVIDERS: ADMIT Internal Medicine; ATTEND Internal Medicine
PROC: 30233N1 Transfusion of Nonautologous Red Blood Cells into Peripheral Vein, Percutaneous Approach (ICD-10-PCS; principal; 2020-11-25)
DX: K92.2 Gastrointestinal hemorrhage, unspecified (principal); N18.4 Chronic kidney disease, stage 4 (severe); I42.9 Cardiomyopathy, unspecified; I48.21 Permanent atrial fibrillation; I50.42 Chronic combined systolic (congestive) and diastolic (congestive) heart failure; J96.11 Chronic respiratory failure with hypoxia; I48.20 Chronic atrial fibrillation, unspecified; D62 Acute posthemorrhagic anemia; I13.0 Hypertensive heart and chronic kidney disease with heart failure and stage 1 through stage 4 chronic kidney disease, or unspecified chronic kidney disease; I25.10 Atherosclerotic heart disease of native coronary artery without angina pectoris; E03.9 Hypothyroidism, unspecified; J44.9 Chronic obstructive pulmonary disease, unspecified; M10.9 Gout, unspecified; E66.9 Obesity, unspecified; E78.00 Pure hypercholesterolemia, unspecified; E11.51 Type 2 diabetes mellitus with diabetic peripheral angiopathy without gangrene; G47.33 Obstructive sleep apnea (adult) (pediatric); E11.22 Type 2 diabetes mellitus with diabetic chronic kidney disease; Z96.652 Presence of left artificial knee joint; Z79.01 Long term (current) use of anticoagulants; Z88.8 Allergy status to other drugs, medicaments and biological substances; Z79.4 Long term (current) use of insulin; Z79.82 Long term (current) use of aspirin; Z79.899 Other long term (current) drug therapy; Z90.89 Acquired absence of other organs; Z87.891 Personal history of nicotine dependence; Z68.32 Body mass index [BMI] 32.0-32.9, adult; Z95.810 Presence of automatic (implantable) cardiac defibrillator
CPT/HCPCS: 36415; 36416; 36430; 80048; 80053; 85014; 85018; 85025; 85049; 86850; 86900; 86901; 96374; 96376; C9113; G0378; J3490; P9016

== ENCOUNTER 2020-12-16 14:41 | Inpatient (IN) | payer MEDICARE ==
[2020-12-16 15:31] LABS: Hemoglobin 10.7 g/dL (14.0-18.0); Mean Corpuscular HGB CONC 31.5 g/dL (32.0-36.0); Mean Corpuscular Hemoglobin 33.4 pg (27.0-31.0); Mean Platelet Volume 10.5 fL (7.4-10.4); Platelet Count 91 thou/uL (130-400); RBC Distribution Width 16.3 % (11.5-14.5); Red Blood Cell (RBC) Count 3.22 mill/uL (4.70-6.10)
[2020-12-16 15:56] LABS: ALT (SGPT) 17 U/L (8-55); AST (SGOT) 33 U/L (5-34); Albumin 4.3 g/dL (3.4-4.8); Alkaline Phosphatase 106 U/L (40-110); Anion Gap 13 mmol/L (10-20); Anisocytosis SLIGHT = 6-15 cells (100X) (0-5/hpf); BUN (Urea Nitrogen) 53 mg/dL (8.4-25.7); Band 6 % (5-11); Bilirubin, Total 1.3 mg/dL (0.2-1.2); Calc. Creatinine Clearance 0 mL/min (70-130); Calcium 8.7 mg/dL (7.8-10.44); Carbon Dioxide 32 mmol/L (23-31); Chloride 99 mmol/L (98-107); Eosinophils 3 % (0-10); Globulin 2.3 g/dL (2.4-3.5); Glucose 104 mg/dL (83-110); Lymphocytes 15 % (21-51); MDiff Complete? YES; Macrocytosis SLIGHT = 6-15 cells (100X) (0-5/hpf); Monocytes 14 % (0-10); Neutrophil 60 % (42-75); Ovalocytes SLIGHT = 2-5 cells (100X) (0-1/hpf); Platelet Morphology Comment Appears Decreased; Polychromasia SLIGHT = 2-3 cells (100X) (0-2/hpf); Potassium 4.4 mmol/L (3.5-5.1); Protein, Total 6.6 g/dL (5.8-8.1); Sodium 140 mmol/L (136-145); Tear Drops SLIGHT = 2-5 cells (100X) (0-1/hpf)
[2020-12-16 16:17] LABS: CKMB 1.2 ng/mL (0-6.6)
[2020-12-16] MEDS ORDERED: Furosemide 40 MG/4 ML VIAL ONE (16:41)
[2020-12-16 16:52] LABS: SARS-CoV-2 NAA Rapid Test Not Detected (NotDetected)
[2020-12-16] MEDS ORDERED: Acetaminophen 325 MG TAB PO PRN (22:45)
[2020-12-16 23:23] LABS: Troponin I 0.044 ng/mL (< 0.028)
[2020-12-17] MEDS ORDERED: Acetaminophen 325 MG TAB PO PRN (04:00)
[2020-12-17] MEDS ORDERED: Ondansetron PF 4 MG/2 ML Vial IVP PRN (04:00)
[2020-12-17] MEDS ORDERED: Dextrose 5% in Water 1,000 ML IV PRN (04:01)
[2020-12-17] MEDS ORDERED: Dextrose 50% Abboject 50 ML SYRINGE SLOW IVP PRN (04:01)
[2020-12-17] MEDS ORDERED: HumaLOG 300 UNITS/3 ML VIAL SC PRN (04:01)
[2020-12-17] MEDS: Furosemide 40 MG/4 ML VIAL SLOW IVP SCH ×2 (05:15→15:23)
[2020-12-17 05:23] LABS: Band 6 % (5-11); Hemoglobin 10.2 g/dL (14.0-18.0); Hypochromia SLIGHT = 6-15 cells (100X) (0-5/hpf); Lymphocytes 10 % (21-51); MDiff Complete? YES; Macrocytosis SLIGHT = 6-15 cells (100X) (0-5/hpf); Mean Corpuscular HGB CONC 32.7 g/dL (32.0-36.0); Mean Corpuscular Hemoglobin 34.2 pg (27.0-31.0); Mean Platelet Volume 10.8 fL (7.4-10.4); Monocytes 10 % (0-10); Neutrophil 72 % (42-75); Platelet Count 91 thou/uL (130-400); Platelet Morphology Comment Appears Decreased; RBC Distribution Width 16.2 % (11.5-14.5); Reactive Lymphocytes 2 % (0-10); Red Blood Cell (RBC) Count 2.99 mill/uL (4.70-6.10); White Blood Cell (WBC) Count 3.7 thou/uL (4.8-10.8)
[2020-12-17 05:40] LABS: Anion Gap 15 mmol/L (10-20); BUN (Urea Nitrogen) 53 mg/dL (8.4-25.7); Calc. Creatinine Clearance 31 mL/min (70-130); Calcium 8.9 mg/dL (7.8-10.44); Carbon Dioxide 31 mmol/L (23-31); Chloride 98 mmol/L (98-107); Glucose 106 mg/dL (83-110); Potassium 3.8 mmol/L (3.5-5.1); Sodium 140 mmol/L (136-145)
[2020-12-17] MEDS: methylPREDNISolone Sod Succ/PF 125 MG/2 ML VIAL IVP SCH ×3 (11:41→23:02)
[2020-12-17] MEDS: HumaLOG 300 UNITS/3 ML VIAL SC PRN (17:08)
[2020-12-17] MEDS: Ezetimibe 10 MG TAB PO SCH (20:31)
[2020-12-17] MEDS: Rosuvastatin 20 MG TAB PO SCH (20:31)
[2020-12-17] MEDS ORDERED: Lantus 1000 UNITS/10 ML VIAL SC SCH (21:00)
[2020-12-18 05:25] LABS: #Lymphocytes 0.4 thou/uL (1.20-3.40); #Monocytes 0.2 thou/uL (0.11-0.59); #Neutrophils 2.8 thou/uL (1.40-6.50); %Basophils 0.2 % (0.0-1.0); %Eosinophils 0.1 % (0.0-10.0); %Lymphocytes 12.7 % (21.0-51.0); %Monocytes 4.4 % (0.0-10.0); %Neutrophils 82.6 % (42.0-75.0); Hemoglobin 9.8 g/dL (14.0-18.0); Mean Corpuscular HGB CONC 30.9 g/dL (32.0-36.0); Mean Corpuscular Hemoglobin 32.7 pg (27.0-31.0); Mean Platelet Volume 10.5 fL (7.4-10.4); Platelet Count 95 thou/uL (130-400); RBC Distribution Width 15.9 % (11.5-14.5); Red Blood Cell (RBC) Count 3.01 mill/uL (4.70-6.10); White Blood Cell (WBC) Count 3.4 thou/uL (4.8-10.8)
[2020-12-18] MEDS: HumaLOG 300 UNITS/3 ML VIAL SC PRN (05:29)
[2020-12-18] MEDS: Furosemide 40 MG/4 ML VIAL SLOW IVP SCH ×2 (05:34→15:12)
[2020-12-18] MEDS: methylPREDNISolone Sod Succ/PF 125 MG/2 ML VIAL IVP SCH ×3 (05:34→18:07)
[2020-12-18] MEDS: Levothyroxine 150 MCG TAB PO SCH (05:34)
[2020-12-18 05:41] LABS: Anion Gap 13 mmol/L (10-20); BUN (Urea Nitrogen) 58 mg/dL (8.4-25.7); Calc. Creatinine Clearance 31 mL/min (70-130); Calcium 8.7 mg/dL (7.8-10.44); Carbon Dioxide 34 mmol/L (23-31); Chloride 97 mmol/L (98-107); Glucose 204 mg/dL (83-110); Sodium 140 mmol/L (136-145)
[2020-12-18] MEDS: Polyethylene Glycol 3350 17 GM Packet PO SCH (08:27)
[2020-12-18] MEDS: Febuxostat 40 MG TAB PO SCH (08:28)
[2020-12-18] MEDS: Colchicine 0.6 MG TAB PO SCH (08:28)
[2020-12-18] MEDS: Loratadine 10 MG TAB PO SCH (08:28)
[2020-12-18] MEDS ORDERED: Doxycycline 100 MG CAP PO SCH (10:00)
[2020-12-18] MEDS: Doxycycline 100 MG CAP PO SCH ×2 (11:33→21:49)
[2020-12-18] MEDS: Mometasone 200 MCG/Formoterol 5 MCG 120 PUFF INHALER INH SCH (18:25)
[2020-12-18] MEDS: Lantus 1000 UNITS/10 ML VIAL SC SCH (21:49)
[2020-12-18] MEDS: Ezetimibe 10 MG TAB PO SCH (21:49)
[2020-12-18] MEDS: Rosuvastatin 20 MG TAB PO SCH (21:49)
[2020-12-18] MEDS: Carvedilol 6.25 MG TAB PO SCH (21:52)
[2020-12-19] MEDS: methylPREDNISolone Sod Succ/PF 125 MG/2 ML VIAL IVP SCH (00:16)
[2020-12-19 05:12] LABS: #Lymphocytes 0.3 thou/uL (1.20-3.40); #Monocytes 0.3 thou/uL (0.11-0.59); #Neutrophils 6.5 thou/uL (1.40-6.50); %Basophils 0.3 % (0.0-1.0); %Eosinophils 0.1 % (0.0-10.0); %Lymphocytes 4.1 % (21.0-51.0); %Monocytes 3.9 % (0.0-10.0); %Neutrophils 91.7 % (42.0-75.0); Hemoglobin 10.4 g/dL (14.0-18.0); Mean Corpuscular HGB CONC 31.3 g/dL (32.0-36.0); Mean Platelet Volume 10.5 fL (7.4-10.4); Platelet Count 100 thou/uL (130-400); Red Blood Cell (RBC) Count 3.16 mill/uL (4.70-6.10); White Blood Cell (WBC) Count 7.1 thou/uL (4.8-10.8)
[2020-12-19 05:29] LABS: Anion Gap 14 mmol/L (10-20); BUN (Urea Nitrogen) 70 mg/dL (8.4-25.7); Calc. Creatinine Clearance 28 mL/min (70-130); Calcium 8.8 mg/dL (7.8-10.44); Carbon Dioxide 33 mmol/L (23-31); Chloride 96 mmol/L (98-107); Glucose 183 mg/dL (83-110); Potassium 4.4 mmol/L (3.5-5.1); Sodium 139 mmol/L (136-145)
[2020-12-19] MEDS: Furosemide 40 MG/4 ML VIAL SLOW IVP SCH (05:49)
[2020-12-19] MEDS: HumaLOG 300 UNITS/3 ML VIAL SC PRN ×3 (05:49→17:59)
[2020-12-19] MEDS: Levothyroxine 150 MCG TAB PO SCH (05:50)
[2020-12-19] MEDS ORDERED: methylPREDNISolone Sod Succ 40 MG VIAL IVP SCH (06:00)
[2020-12-19] MEDS: Mometasone 200 MCG/Formoterol 5 MCG 120 PUFF INHALER INH SCH ×2 (07:20→18:49)
[2020-12-19] MEDS: Doxycycline 100 MG CAP PO SCH ×2 (10:09→21:39)
[2020-12-19] MEDS: Colchicine 0.6 MG TAB PO SCH (10:09)
[2020-12-19] MEDS: Polyethylene Glycol 3350 17 GM Packet PO SCH (10:09)
[2020-12-19] MEDS: Carvedilol 6.25 MG TAB PO SCH ×4 (10:10→21:39)
[2020-12-19] MEDS: Loratadine 10 MG TAB PO SCH (10:10)
[2020-12-19] MEDS: Febuxostat 40 MG TAB PO SCH (10:10)
[2020-12-19] MEDS ORDERED: Acetylcysteine 10% 100 MG/ML 30 ml Vial INH PRN (11:07)
[2020-12-19] MEDS: methylPREDNISolone Sod Succ 40 MG VIAL IVP SCH ×3 (11:28→23:40)
[2020-12-19] MEDS ORDERED: Furosemide 40 MG/4 ML VIAL SLOW IVP SCH (18:45)
[2020-12-19] MEDS ORDERED: Acetylcysteine 10% 100 MG/ML 30 ml Vial INH SCH (20:00)
[2020-12-19] MEDS: Rosuvastatin 20 MG TAB PO SCH (21:39)
[2020-12-19] MEDS: Ezetimibe 10 MG TAB PO SCH (21:39)
[2020-12-19] MEDS: Lantus 1000 UNITS/10 ML VIAL SC SCH (21:45)
[2020-12-20 04:43] LABS: #Basophils 0.1 thou/uL (0.0-0.2); #Lymphocytes 0.2 thou/uL (1.20-3.40); #Monocytes 0.3 thou/uL (0.11-0.59); #Neutrophils 5.4 thou/uL (1.40-6.50); %Basophils 1.1 % (0.0-1.0); %Eosinophils 0.1 % (0.0-10.0); %Lymphocytes 2.5 % (21.0-51.0); %Monocytes 4.2 % (0.0-10.0); Hemoglobin 10.6 g/dL (14.0-18.0); Mean Corpuscular HGB CONC 31.8 g/dL (32.0-36.0); Mean Corpuscular Hemoglobin 33.7 pg (27.0-31.0); Mean Platelet Volume 10.8 fL (7.4-10.4); Platelet Count 94 thou/uL (130-400); RBC Distribution Width 15.9 % (11.5-14.5); Red Blood Cell (RBC) Count 3.15 mill/uL (4.70-6.10); White Blood Cell (WBC) Count 5.9 thou/uL (4.8-10.8)
[2020-12-20 05:00] LABS: Anion Gap 18 mmol/L (10-20); BUN (Urea Nitrogen) 94 mg/dL (8.4-25.7); Carbon Dioxide 31 mmol/L (23-31); Chloride 96 mmol/L (98-107); Potassium 4.8 mmol/L (3.5-5.1); Sodium 140 mmol/L (136-145)
[2020-12-20 05:01] LABS: Calc. Creatinine Clearance 23 mL/min (70-130); Calcium 8.5 mg/dL (7.8-10.44); Glucose 180 mg/dL (83-110)
[2020-12-20] MEDS: methylPREDNISolone Sod Succ 40 MG VIAL IVP SCH ×4 (05:22→23:38)
[2020-12-20] MEDS: Levothyroxine 150 MCG TAB PO SCH (05:22)
[2020-12-20] MEDS ORDERED: Furosemide 40 MG/4 ML VIAL SLOW IVP SCH (06:00)
[2020-12-20] MEDS: HumaLOG 300 UNITS/3 ML VIAL SC PRN ×3 (06:05→17:04)
[2020-12-20] MEDS: Polyethylene Glycol 3350 17 GM Packet PO SCH (08:20)
[2020-12-20] MEDS: Doxycycline 100 MG CAP PO SCH (08:20)
[2020-12-20] MEDS: Carvedilol 6.25 MG TAB PO SCH ×2 (08:21→21:16)
[2020-12-20] MEDS: Febuxostat 40 MG TAB PO SCH (08:21)
[2020-12-20] MEDS: Colchicine 0.6 MG TAB PO SCH (08:22)
[2020-12-20] MEDS: Loratadine 10 MG TAB PO SCH (08:22)
[2020-12-20 08:47] LABS: RBC/HPF 0-3 HPF (0-3); Squamous Epithelial 0-3 HPF (0-3)
[2020-12-20 10:05] LABS: Bacteria/HPF 1+ HPF (None Seen)
[2020-12-20] MEDS: Mometasone 200 MCG/Formoterol 5 MCG 120 PUFF INHALER INH SCH ×2 (11:23→18:24)
[2020-12-20] MEDS: Acetylcysteine 10% 100 MG/ML 30 ml Vial INH SCH ×2 (11:24→17:23)
[2020-12-20 18:58] LABS: Phosphorus 8.3 mg/dL (2.3-4.7)
[2020-12-20] MEDS: cefTRIAXone\\ROCEPHIN 1 GM in Sodium Chloride 0.9% 100 ML IVPB SCH (21:10)
[2020-12-20] MEDS: Rosuvastatin 20 MG TAB PO SCH (21:15)
[2020-12-20] MEDS: Ezetimibe 10 MG TAB PO SCH (21:15)
[2020-12-20] MEDS: Lantus 1000 UNITS/10 ML VIAL SC SCH (21:17)
[2020-12-21 05:23] LABS: Anion Gap 21 mmol/L (10-20); BUN (Urea Nitrogen) 118 mg/dL (8.4-25.7); Calc. Creatinine Clearance 21 mL/min (70-130); Calcium 8.3 mg/dL (7.8-10.44); Carbon Dioxide 28 mmol/L (23-31); Chloride 96 mmol/L (98-107); Glucose 154 mg/dL (83-110); Potassium 5.2 mmol/L (3.5-5.1); Sodium 140 mmol/L (136-145)
[2020-12-21] MEDS: methylPREDNISolone Sod Succ 40 MG VIAL IVP SCH ×5 (05:38→23:47)
[2020-12-21] MEDS: Levothyroxine 150 MCG TAB PO SCH (05:39)
[2020-12-21] MEDS: HumaLOG 300 UNITS/3 ML VIAL SC PRN ×2 (05:47→13:31)
[2020-12-21] MEDS: Mometasone 200 MCG/Formoterol 5 MCG 120 PUFF INHALER INH SCH (07:46)
[2020-12-21] MEDS: Polyethylene Glycol 3350 17 GM Packet PO SCH (07:56)
[2020-12-21] MEDS: Loratadine 10 MG TAB PO SCH (07:56)
[2020-12-21] MEDS: Colchicine 0.6 MG TAB PO SCH (07:56)
[2020-12-21] MEDS: Carvedilol 6.25 MG TAB PO SCH ×2 (07:59→22:08)
[2020-12-21] MEDS: Febuxostat 40 MG TAB PO SCH (08:00)
[2020-12-21] MEDS ORDERED: Furosemide 40 MG/4 ML VIAL SLOW IVP SCH (09:00)
[2020-12-21] MEDS ORDERED: Heparin 10,000 UNITS/ 10 ML VIAL ONE (09:29)
[2020-12-21 19:43] LABS: Hep B Surf Ag Non-Reactive S/CO (NonReactive)
[2020-12-21] MEDS: cefTRIAXone\\ROCEPHIN 1 GM in Sodium Chloride 0.9% 100 ML IVPB SCH (22:07)
[2020-12-21] MEDS: Rosuvastatin 20 MG TAB PO SCH (22:08)
[2020-12-21] MEDS: Ezetimibe 10 MG TAB PO SCH (22:08)
[2020-12-21] MEDS: Lantus 1000 UNITS/10 ML VIAL SC SCH (22:11)
[2020-12-22] MEDS: Mometasone 200 MCG/Formoterol 5 MCG 120 PUFF INHALER INH SCH ×3 (00:07→19:38)
[2020-12-22 00:19] LABS: HBSAB Concentration Less than 8.00 mIU/mL; HBSAg Index 0.19 S/CO (0-0.99); Hep B Core Total Ab Non-Reactive (NonReactive); Hep B Core Total Index 0.02 S/CO (0-0.79); Hep B Surf AB Non-Reactive (NonReactive); Hep B Surf Ag Non-Reactive S/CO (NonReactive); Hep C IgG Ab Non-Reactive (NonReactive); Hep C Index 0.02 S/CO (0-0.79)
[2020-12-22] MEDS: Levothyroxine 150 MCG TAB PO SCH (05:38)
[2020-12-22] MEDS: methylPREDNISolone Sod Succ 40 MG VIAL IVP SCH ×2 (05:38→13:14)
[2020-12-22 05:59] LABS: #Lymphocytes 0.2 thou/uL (1.20-3.40); #Monocytes 0.2 thou/uL (0.11-0.59); #Neutrophils 2.2 thou/uL (1.40-6.50); %Basophils 0.9 % (0.0-1.0); %Eosinophils 0.2 % (0.0-10.0); %Lymphocytes 6.6 % (21.0-51.0); %Monocytes 7.5 % (0.0-10.0); %Neutrophils 84.8 % (42.0-75.0); Hemoglobin 10.4 g/dL (14.0-18.0); Mean Corpuscular HGB CONC 31.5 g/dL (32.0-36.0); Mean Corpuscular Hemoglobin 32.5 pg (27.0-31.0); Mean Platelet Volume 10.5 fL (7.4-10.4); Platelet Count 81 thou/uL (130-400); RBC Distribution Width 15.5 % (11.5-14.5); White Blood Cell (WBC) Count 2.6 thou/uL (4.8-10.8)
[2020-12-22 06:19] LABS: Anion Gap 18 mmol/L (10-20); BUN (Urea Nitrogen) 106 mg/dL (8.4-25.7); Calc. Creatinine Clearance 21 mL/min (70-130); Calcium 8.3 mg/dL (7.8-10.44); Carbon Dioxide 30 mmol/L (23-31); Chloride 96 mmol/L (98-107); Glucose 146 mg/dL (83-110); Sodium 139 mmol/L (136-145)
[2020-12-22] MEDS: Carvedilol 6.25 MG TAB PO SCH ×2 (08:50→21:39)
[2020-12-22] MEDS: Polyethylene Glycol 3350 17 GM Packet PO SCH (08:50)
[2020-12-22] MEDS: Loratadine 10 MG TAB PO SCH (08:51)
[2020-12-22] MEDS: Colchicine 0.6 MG TAB PO SCH (08:51)
[2020-12-22] MEDS: Febuxostat 40 MG TAB PO SCH (08:51)
[2020-12-22] MEDS ORDERED: Bacteriostatic Water 30 ML VIAL FS PRN (13:00)
[2020-12-22] MEDS: HumaLOG 300 UNITS/3 ML VIAL SC PRN (13:15)
[2020-12-22] MEDS: Rosuvastatin 20 MG TAB PO SCH (21:39)
[2020-12-22] MEDS: Ezetimibe 10 MG TAB PO SCH (21:39)
[2020-12-22] MEDS: Lantus 1000 UNITS/10 ML VIAL SC SCH (22:51)
[2020-12-23 04:49] LABS: Anion Gap 19 mmol/L (10-20); Calc. Creatinine Clearance 18 mL/min (70-130); Calcium 7.9 mg/dL (7.8-10.44); Carbon Dioxide 28 mmol/L (23-31); Chloride 96 mmol/L (98-107); Glucose 184 mg/dL (83-110); Potassium 5.2 mmol/L (3.5-5.1); Sodium 138 mmol/L (136-145)
[2020-12-23 05:00] LABS: BUN (Urea Nitrogen) 119 mg/dL (8.4-25.7)
[2020-12-23] MEDS: Levothyroxine 150 MCG TAB PO SCH (05:26)
[2020-12-23] MEDS: Mometasone 200 MCG/Formoterol 5 MCG 120 PUFF INHALER INH SCH ×2 (06:44→20:30)
[2020-12-23] MEDS ORDERED: Heparin 10,000 UNITS/ 10 ML VIAL ONE (08:37)
[2020-12-23] MEDS: Carvedilol 6.25 MG TAB PO SCH ×2 (08:58→21:21)
[2020-12-23] MEDS: methylPREDNISolone Sod Succ 40 MG VIAL IVP SCH (08:59)
[2020-12-23] MEDS: Febuxostat 40 MG TAB PO SCH (08:59)
[2020-12-23] MEDS: Loratadine 10 MG TAB PO SCH (08:59)
[2020-12-23] MEDS: Colchicine 0.6 MG TAB PO SCH (08:59)
[2020-12-23] MEDS: Polyethylene Glycol 3350 17 GM Packet PO SCH (09:00)
[2020-12-23] MEDS ORDERED: methylPREDNISolone Sod Succ 40 MG VIAL IVP SCH (09:00)
[2020-12-23] MEDS ORDERED: Tuberculin PPD 0.1 ML VIAL I-DERMAL SCH ×2 (20:00→21:30)
[2020-12-23] MEDS: Lantus 1000 UNITS/10 ML VIAL SC SCH (21:21)
[2020-12-23] MEDS: Rosuvastatin 20 MG TAB PO SCH (21:21)
[2020-12-23] MEDS: Ezetimibe 10 MG TAB PO SCH (21:21)
[2020-12-24] MEDS: Levothyroxine 150 MCG TAB PO SCH (05:42)
[2020-12-24] MEDS: Mometasone 200 MCG/Formoterol 5 MCG 120 PUFF INHALER INH SCH ×2 (06:27→19:32)
[2020-12-24 06:49] LABS: Anion Gap 17 mmol/L (10-20); BUN (Urea Nitrogen) 89 mg/dL (8.4-25.7); Calc. Creatinine Clearance 19 mL/min (70-130); Carbon Dioxide 29 mmol/L (23-31); Chloride 98 mmol/L (98-107); Glucose 107 mg/dL (83-110); Potassium 4.7 mmol/L (3.5-5.1); Sodium 139 mmol/L (136-145)
[2020-12-24] MEDS: Carvedilol 6.25 MG TAB PO SCH ×2 (08:37→20:03)
[2020-12-24] MEDS: Loratadine 10 MG TAB PO SCH (08:37)
[2020-12-24] MEDS: Polyethylene Glycol 3350 17 GM Packet PO SCH (08:37)
[2020-12-24] MEDS: Colchicine 0.6 MG TAB PO SCH (08:37)
[2020-12-24] MEDS: methylPREDNISolone Sod Succ 40 MG VIAL IVP SCH (08:38)
[2020-12-24] MEDS: Febuxostat 40 MG TAB PO SCH (08:38)
[2020-12-24] MEDS ORDERED: Heparin 10,000 UNITS/ 10 ML VIAL ONE (09:09)
[2020-12-24] MEDS: Rosuvastatin 20 MG TAB PO SCH (20:03)
[2020-12-24] MEDS: Ezetimibe 10 MG TAB PO SCH (20:03)
[2020-12-24] MEDS: Lantus 1000 UNITS/10 ML VIAL SC SCH (20:06)
[2020-12-25] MEDS: Levothyroxine 150 MCG TAB PO SCH (06:22)
[2020-12-25 07:50] LABS: SARS-CoV-2 PCR by NAA Not Detected (NotDetected)
[2020-12-25] MEDS: Mometasone 200 MCG/Formoterol 5 MCG 120 PUFF INHALER INH SCH ×2 (08:02→19:26)
[2020-12-25] MEDS: Carvedilol 6.25 MG TAB PO SCH ×2 (08:29→20:26)
[2020-12-25] MEDS: Polyethylene Glycol 3350 17 GM Packet PO SCH (08:30)
[2020-12-25] MEDS: Colchicine 0.6 MG TAB PO SCH (08:35)
[2020-12-25] MEDS: Febuxostat 40 MG TAB PO SCH (08:35)
[2020-12-25] MEDS: Loratadine 10 MG TAB PO SCH (08:35)
[2020-12-25] MEDS ORDERED: READ PPD TEST SITE PO SCH (09:00)
[2020-12-25 12:52] VITALS: BMI 32.8
[2020-12-25] MEDS ORDERED: Sodium Chloride 0.9% 100 ML ONE (14:42)
[2020-12-25] MEDS ORDERED: CEFAZOLIN 1 GM VIAL ONE (14:42)
[2020-12-25] MEDS ORDERED: Protamine Sulfate 50 MG/5 ML VIAL ONE (15:21)
[2020-12-25] MEDS ORDERED: Heparin 5,000 UNITS/ML VIAL ONE (15:21)
[2020-12-25] MEDS ORDERED: Heparin 10,000 UNITS/ 10 ML VIAL ONE (15:21)
[2020-12-25] MEDS ORDERED: Bupivacaine PF 0.5% 30 ML VIAL ONE (15:21)
[2020-12-25] MEDS ORDERED: Ioversol 68 % 50 ML VIAL ONE (15:21)
[2020-12-25] MEDS ORDERED: Sodium Chloride 0.9% 20 ML ONE (15:21)
[2020-12-25] MEDS ORDERED: Lidocaine 1% w/Epinephrine 1:100K 20 ML VIAL ONE (15:21)
[2020-12-25] MEDS ORDERED: PROPOFOL 40 ML ONE (15:26)
[2020-12-25] MEDS ORDERED: Ketamine 50 MG/ML (10ML VIAL) ONE (15:40)
[2020-12-25] MEDS ORDERED: Midazolam HCl 2 mg/2 ml Vial ONE (15:40)
[2020-12-25] MEDS ORDERED: Glycopyrrolate 0.2 MG/ML 5 ML SYRINGE ONE (15:50)
[2020-12-25] MEDS ORDERED: Ondansetron PF 4 MG/2 ML Vial ONE (15:50)
[2020-12-25] MEDS ORDERED: Ropivacaine 0.5% HCl/PF (150 MG/30 ML VIAL) ONE (15:50)
[2020-12-25] MEDS ORDERED: Bacitracin Zinc Ointment 30 gm TUBE ONE (17:12)
[2020-12-25] MEDS ORDERED: Ondansetron HCl/PF 4 MG/2 ML Vial IVP PRN (17:15)
[2020-12-25] MEDS: Rosuvastatin 20 MG TAB PO SCH (20:26)
[2020-12-25] MEDS: Lantus 1000 UNITS/10 ML VIAL SC SCH (20:26)
[2020-12-25] MEDS: Ezetimibe 10 MG TAB PO SCH (20:26)
[2020-12-25] MEDS: READ PPD TEST SITE PO SCH (23:36)
[2020-12-26] MEDS: Levothyroxine 150 MCG TAB PO SCH (05:31)
[2020-12-26 06:24] LABS: Hemoglobin 10.1 g/dL (14.0-18.0); Mean Corpuscular HGB CONC 32.1 g/dL (32.0-36.0); Mean Corpuscular Hemoglobin 32.6 pg (27.0-31.0); Mean Platelet Volume 11.4 fL (7.4-10.4); Platelet Count 67 thou/uL (130-400); RBC Distribution Width 15.1 % (11.5-14.5); White Blood Cell (WBC) Count 4.3 thou/uL (4.8-10.8)
[2020-12-26 06:37] LABS: Anion Gap 12 mmol/L (10-20); BUN (Urea Nitrogen) 78 mg/dL (8.4-25.7); Calc. Creatinine Clearance 18 mL/min (70-130); Calcium 7.5 mg/dL (7.8-10.44); Carbon Dioxide 30 mmol/L (23-31); Chloride 100 mmol/L (98-107); Glucose 120 mg/dL (83-110); Potassium 4.7 mmol/L (3.5-5.1); Sodium 137 mmol/L (136-145)
[2020-12-26] MEDS: Mometasone 200 MCG/Formoterol 5 MCG 120 PUFF INHALER INH SCH ×2 (07:56→19:28)
[2020-12-26] MEDS ORDERED: Heparin 10,000 UNITS/ 10 ML VIAL ONE (08:26)
[2020-12-26] MEDS: Colchicine 0.6 MG TAB PO SCH (09:02)
[2020-12-26] MEDS: Loratadine 10 MG TAB PO SCH (09:02)
[2020-12-26] MEDS: Carvedilol 6.25 MG TAB PO SCH ×2 (09:02→21:05)
[2020-12-26] MEDS: Febuxostat 40 MG TAB PO SCH (09:02)
[2020-12-26] MEDS: Polyethylene Glycol 3350 17 GM Packet PO SCH (09:41)
[2020-12-26] MEDS: Rosuvastatin 20 MG TAB PO SCH (20:56)
[2020-12-26] MEDS: Ezetimibe 10 MG TAB PO SCH (20:56)
[2020-12-26] MEDS: Lantus 1000 UNITS/10 ML VIAL SC SCH (21:04)
[2020-12-26] MEDS: READ PPD TEST SITE PO SCH (23:23)
[2020-12-27] MEDS: Levothyroxine 150 MCG TAB PO SCH (05:45)
[2020-12-27] MEDS: Carvedilol 6.25 MG TAB PO SCH (09:00)
[2020-12-27] MEDS: Febuxostat 40 MG TAB PO SCH (09:00)
[2020-12-27] MEDS: Colchicine 0.6 MG TAB PO SCH (09:01)
[2020-12-27] MEDS: Loratadine 10 MG TAB PO SCH (09:01)
[2020-12-27] MEDS: Polyethylene Glycol 3350 17 GM Packet PO SCH (09:03)
[2020-12-27] MEDS: Mometasone 200 MCG/Formoterol 5 MCG 120 PUFF INHALER INH SCH (10:37)
[2020-12-27 16:02] VITALS: BP 122/68; TEMP 98.3
== END 2020-12-27 16:10 | DRG 264 ==
LOC: ERS 14:41 → 2NO 17:48 → ONC 12-22 16:20 → T4-B 12-23 23:56
PROVIDERS: ADMIT Internal Medicine; ATTEND Internal Medicine
PROC: 06HY33Z Insertion of Infusion Device into Lower Vein, Percutaneous Approach (ICD-10-PCS; 2020-12-21)
PROC: 031C0ZF Bypass Left Radial Artery to Lower Arm Vein, Open Approach (ICD-10-PCS; principal; 2020-12-25)
PROC: 0JH63XZ Insertion of Tunneled Vascular Access Device into Chest Subcutaneous Tissue and Fascia, Percutaneous Approach (ICD-10-PCS; 2020-12-25)
PROC: 02HV33Z Insertion of Infusion Device into Superior Vena Cava, Percutaneous Approach (ICD-10-PCS; 2020-12-25)
PROC: B548ZZA Ultrasonography of Superior Vena Cava, Guidance (ICD-10-PCS; 2020-12-25)
DX: I13.2 Hypertensive heart and chronic kidney disease with heart failure and with stage 5 chronic kidney disease, or end stage renal disease (principal); I50.43 Acute on chronic combined systolic (congestive) and diastolic (congestive) heart failure; J96.21 Acute and chronic respiratory failure with hypoxia; J44.1 Chronic obstructive pulmonary disease with (acute) exacerbation; N17.9 Acute kidney failure, unspecified; I48.20 Chronic atrial fibrillation, unspecified; D61.818 Other pancytopenia; Z20.822 Contact with and (suspected) exposure to COVID-19; Z66 Do not resuscitate; E11.22 Type 2 diabetes mellitus with diabetic chronic kidney disease; E03.9 Hypothyroidism, unspecified; K21.9 Gastro-esophageal reflux disease without esophagitis; E78.5 Hyperlipidemia, unspecified; E78.00 Pure hypercholesterolemia, unspecified; E11.42 Type 2 diabetes mellitus with diabetic polyneuropathy; D63.1 Anemia in chronic kidney disease; I25.10 Atherosclerotic heart disease of native coronary artery without angina pectoris; E11.65 Type 2 diabetes mellitus with hyperglycemia; E66.9 Obesity, unspecified; E83.39 Other disorders of phosphorus metabolism; E88.09 Other disorders of plasma-protein metabolism, not elsewhere classified; I08.1 Rheumatic disorders of both mitral and tricuspid valves; Z96.651 Presence of right artificial knee joint; Z95.0 Presence of cardiac pacemaker; Z95.5 Presence of coronary angioplasty implant and graft; Z98.890 Other specified postprocedural states; Z87.891 Personal history of nicotine dependence; Z79.4 Long term (current) use of insulin; Z79.01 Long term (current) use of anticoagulants; Z79.51 Long term (current) use of inhaled steroids; Z79.82 Long term (current) use of aspirin; Z79.899 Other long term (current) drug therapy; Z99.81 Dependence on supplemental oxygen; Z68.32 Body mass index [BMI] 32.0-32.9, adult; Z79.890 Hormone replacement therapy
CPT/HCPCS: 0240U; 36415; 36416; 71045; 76000; 80048; 80053; 81015; 82248; 82553; 82607; 82668; 82728; 82746; 83540; 83550; 83605; 83615; 83880; 84100; 84484; 84550; 85025; 85027; 85379; 86580; 86704; 86706; 86803; 86850; 86900; 86901; 87070; 87205; 87340; 89220; 90935; 93005; 93306; 93970; 94667; 94668; 96374; C1751; C1752; G0257; J0690; J0696; J1642; J1644; J1815; J1940; J2250; J2405; J2704; J2720; J2795; J2920; J2930; J3490; J7608; J7620; Q9967; S0020; U0003; U0005